=== PATIENT | male | born 1960 | race Caucasian/White ===

== ENCOUNTER → 2017-01-13 | Outpatient (CLI) | payer OTHER ==
[~2017-01-13] MED LIST: BIAXIN500 MG PO; CIPRO250 MG PO; CLARITIN10 MG PO; COMBIVENT1 ARO IH; CORDROL20 MG PO; COREG25 MG PO; CYCLOBENZAPRINE5 M3 PO; DAYPRO600 M1 PO; DUONEB 3 MG/3 ML3 M1 INH; EFFEXOR75 MG PO; FLOVENT0.044 MG/A IH; GLYCERIN SUPPOS1 SUP RC; HYDRALAZINE HCL25 MG PO; HYDROCHLOROTHIA25 M1 PO; KEFLEX500 MG PO; LAMICTAL100 MG PO; LASIX40 MG PO; LEVOFLOXACIN500 MG PO; MOTRIN800 MG PO; NAPROSYN500 MG PO; NORCO 325 MG-7.1 TAB PO; NORCO 5-325 TA1 EACH PO; NORVASC10 MG PO; PRAVACHOL20 MG PO; PREDNICOT20 MG PO; PRILOSEC20 MG PO; REQUIP1 MG PO; ROBAXIN750 MG PO; SPIRIVA18 MCG PO; SYMBICORT1 AE1 INH; VENTOLIN H0.09 MG/AC INH; VICODIN ES 7501 TA1 PO; ZANTAC150 MG PO; ZESTRIL,PRINIVI40 MG PO; ZITHROMAX250 MG PO
[2017-01-13 11:03] LABS: HEMOGLOBIN A1c 5.7 % (4.8-5.6)
[2017-01-13 11:24] LABS: ALBUMIN 3.5 gm/dl (3.1-4.5); POTASSIUM 3.6 mmol/L (3.5-5.1)
[2017-01-13 11:28] LABS: BILIRUBIN, TOTAL 0.2 mg/dl (0.2-1.0); TOTAL PROTEIN 8.1 gm/dL (6.4-8.2)
== END | disposition home or self-care (01) ==
LOC: LAB 10:28
PROVIDERS: Family Medicine
DX: I10 Essential (primary) hypertension (principal); E55.9 Vitamin D deficiency, unspecified; E74.9 Disorder of carbohydrate metabolism, unspecified; E78.00 Pure hypercholesterolemia, unspecified

== ENCOUNTER 2017-02-23 19:51 | Emergency (ER) | payer OTHER ==
[~2017-02-23] VITALS: Ht 167.6 cm; Wt 90.7 kg
[2017-02-23 20:36] LABS: BASO % 0.4 % (0.0-1.0); EOS # 0.4 10*3/uL (0.0-0.4); EOS % 3.8 % (1.0-4.0); HEMATOCRIT 47.5 % (42.0-52.0); HEMOGLOBIN 16.4 g/dl (14.0-18.0); IG # 0.1 10*3/uL (0.0-0.1); LYMPH # 2.2 10*3/uL (1.3-4.4); LYMPH % 23.2 % (27.0-41.0); MEAN CELL VOLUME 89.1 fl (80.0-94.0); MEAN CORPUSCULAR HGB 30.8 pg (27.0-31.0); MEAN CORPUSCULAR HGB CONC 34.5 g/dl (33.0-37.0); MEAN PLATELET VOLUME 8.8 fl (9.6-12.3); MONO # 0.9 10*3/uL (0.1-1.0); MONO % 9.1 % (3.0-9.0); PLATELET COUNT AUTOMATED 345 10*3/uL (130-400); RED BLOOD COUNT 5.33 10*6/uL (4.50-5.90); RED CELL DISTRI WIDTH 13.6 % (0-14.5); WHITE BLOOD COUNT 9.6 10*3/uL (4.8-10.8)
[2017-02-23 20:59] LABS: ALKALINE PHOSPHATASE 82 U/L (45-117); BILIRUBIN, TOTAL 0.4 mg/dl (0.2-1.0); BUN 13 mg/dl (7-24); CARBON DIOXIDE 27 mmol/L (21-32); CHLORIDE 103 mmol/L (98-107); EST GLOM FILT AFRICAN AMERICAN > 60 ml/min; GLUCOSE 95 mg/dL (65-99); POTASSIUM 3.7 mmol/L (3.5-5.1); SGOT/AST 17 IU/L (3-35); SGPT/ALT 26 U/L (12-78); SODIUM 138 mmol/L (136-145); TOTAL PROTEIN 7.8 gm/dL (6.4-8.2)
[2017-02-23 21:00] LABS: TROPONIN I < 0.015 ng/ml (<0.045)
[2017-02-23 22:28] LABS: BILIRUBIN NEGATIVE (NEGATIVE); BLOOD NEGATIVE (NEGATIVE); CLARITY CLEAR (CLEAR); COLOR YELLOW (YELLOW); GLUCOSE NEGATIVE (NEGATIVE); KETONE NEGATIVE (NEGATIVE); LEUKO ESTERASE NEGATIVE (NEGATIVE); NITRITE NEGATIVE (NEGATIVE); PH 6.5 (5.0-9.0); PROTEIN NEGATIVE (NEGATIVE); SPECIFIC GRAVITY <= 1.005 (1.005-1.030); UROBILINOGEN 0.2 E.U./dl (0.2-1.0)
[2017-02-23 22:36] LABS: RBC 0-2 rbc/hpf (0-2); URINE REFLEX COMMENT NO (NO)
[2017-02-23 22:45] VITALS: BP 174/90
[2017-02-23] MEDS ORDERED: NORCO 5-325 TA1 EACH PO (23:07)
[2017-02-23] MEDS ORDERED: CYCLOBENZAPRINE5 M3 PO (23:07)
== END 2017-02-23 23:13 | disposition home or self-care (01) ==
LOC: ED 19:51
PROVIDERS: Emergency Medicine Emergency Medical Services
DX: G89.29 Other chronic pain (principal); M54.5 Low back pain; I10 Essential (primary) hypertension; M51.36 Other intervertebral disc degeneration, lumbar region; F17.200 Nicotine dependence, unspecified, uncomplicated; Z79.899 Other long term (current) drug therapy

== ENCOUNTER → 2017-04-08 | Outpatient (CLI) | payer OTHER ==
[2017-04-08 08:52] LABS: HEMATOCRIT 45.4 % (42.0-52.0); HEMOGLOBIN 15.4 g/dl (14.0-18.0); MEAN CELL VOLUME 92.8 fl (80.0-94.0); MEAN CORPUSCULAR HGB 31.5 pg (27.0-31.0); MEAN CORPUSCULAR HGB CONC 33.9 g/dl (33.0-37.0); MEAN PLATELET VOLUME 8.8 fl (9.6-12.3); RED BLOOD COUNT 4.89 10*6/uL (4.50-5.90); RED CELL DISTRI WIDTH 13.8 % (0-14.5); WHITE BLOOD COUNT 8.8 10*3/uL (4.8-10.8)
[2017-04-08 09:23] LABS: ALBUMIN 3.4 gm/dl (3.1-4.5); ALKALINE PHOSPHATASE 69 U/L (45-117); BILIRUBIN, TOTAL 0.4 mg/dl (0.2-1.0); BUN 14 mg/dl (7-24); CARBON DIOXIDE 31 mmol/L (21-32); CHLORIDE 103 mmol/L (98-107); EST GLOM FILT AFRICAN AMERICAN > 60 ml/min; GLUCOSE 105 mg/dL (65-99); SGOT/AST 20 IU/L (3-35); SGPT/ALT 25 U/L (12-78); SODIUM 142 mmol/L (136-145); TOTAL PROTEIN 7.5 gm/dL (6.4-8.2)
== END | disposition home or self-care (01) ==
LOC: LAB 08:20
PROVIDERS: Family Medicine
DX: N18.3 Chronic kidney disease, stage 3 (moderate) (principal); R60.0 Localized edema

== ENCOUNTER 2017-05-01 18:34 | Emergency (ER) | payer OTHER ==
[~2017-05-01] VITALS: Ht 167.6 cm; Wt 90.7 kg
[2017-05-01 18:52] VITALS: BP 165/115
[2017-05-01] MEDS ORDERED: MEDROL DOSEPAK4 MG PO (20:51)
[2017-05-01] MEDS ORDERED: CYCLOBENZAPRINE5 M3 PO (20:51)
[2017-05-01] MEDS ORDERED: HYDROCODONE BIT1 T11 PO (20:51)
== END 2017-05-01 21:20 | disposition home or self-care (01) ==
LOC: ED 18:34
DX: M54.16 Radiculopathy, lumbar region (principal); F17.200 Nicotine dependence, unspecified, uncomplicated; Z79.82 Long term (current) use of aspirin; Z79.899 Other long term (current) drug therapy

== ENCOUNTER 2017-07-23 16:00 | Inpatient (IN) | payer OTHER ==
[~2017-07-23] VITALS: Ht 167.6 cm; Wt 92.6 kg
[~2017-07-23 16:00] MED LIST changes: +HYDROCODONE BIT1 T11 PO; +MEDROL DOSEPAK4 MG PO; +REQUIP1 M1 PO; -REQUIP1 MG PO
[2017-07-23 16:12] VITALS: BP 230/115
[2017-07-23 16:15] VITALS: BP 180/104
[2017-07-23 16:20] VITALS: BP 160/110
[2017-07-23 16:41] LABS: BASO # 0.1 10*3/uL (0.0-0.1); BASO % 0.6 % (0.0-1.0); EOS # 0.6 10*3/uL (0.0-0.4); EOS % 5.5 % (1.0-4.0); HEMATOCRIT 48.9 % (42.0-52.0); HEMOGLOBIN 16.4 g/dl (14.0-18.0); LYMPH # 2.7 10*3/uL (1.3-4.4); LYMPH % 24.8 % (27.0-41.0); MEAN CELL VOLUME 91.2 fl (80.0-94.0); MEAN CORPUSCULAR HGB 30.6 pg (27.0-31.0); MEAN CORPUSCULAR HGB CONC 33.5 g/dl (33.0-37.0); MEAN PLATELET VOLUME 8.6 fl (9.6-12.3); MONO # 0.8 10*3/uL (0.1-1.0); MONO % 7.6 % (3.0-9.0); NEUT # 6.6 10*3/uL (2.3-7.9); NEUT % 61.2 % (47.0-73.0); PLATELET COUNT AUTOMATED 345 10*3/uL (130-400); RED BLOOD COUNT 5.36 10*6/uL (4.50-5.90); RED CELL DISTRI WIDTH 13.8 % (0-14.5); WHITE BLOOD COUNT 10.7 10*3/uL (4.8-10.8)
[2017-07-23 16:50] LABS: ACT PARTIAL THROMBO TIME 25.5 SECONDS (20.8-31.5); INTERNATIONAL NORM RATIO 0.9 (2.0-3.5)
[2017-07-23 16:58] LABS: ALBUMIN 3.7 gm/dl (3.1-4.5); ALKALINE PHOSPHATASE 90 U/L (45-117); BUN 14 mg/dl (7-24); CHLORIDE 102 mmol/L (98-107); CREATININE 1.34 mg/dL (0.70-1.30); LIPASE 151 U/L (73-393); MAGNESIUM 2.2 mg/dL (1.5-2.1); POTASSIUM 4.3 mmol/L (3.5-5.1); SGOT/AST 17 IU/L (3-35); SGPT/ALT 19 U/L (12-78); SODIUM 139 mmol/L (136-145)
[2017-07-23 17:01] LABS: TROPONIN I < 0.015 ng/ml (<0.045)
[2017-07-23 18:30] VITALS: BP 148/100
[2017-07-23 18:37] LABS: BILIRUBIN NEGATIVE (NEGATIVE); BLOOD NEGATIVE (NEGATIVE); CLARITY CLEAR (CLEAR); COLOR YELLOW (YELLOW); GLUCOSE NEGATIVE (NEGATIVE); KETONE NEGATIVE (NEGATIVE); LEUKO ESTERASE NEGATIVE (NEGATIVE); NITRITE NEGATIVE (NEGATIVE); PH 5.5 (5.0-9.0); UROBILINOGEN 0.2 E.U./dl (0.2-1.0)
[2017-07-23 18:46] LABS: BACTERIA TRACE; EPITHELIAL CELLS 0-2; RBC 0-2 rbc/hpf (0-2); WBC 0-2 wbc/hpf (0-5)
[2017-07-23 19:40] VITALS: BP 205/107
--- NOTE | 2017-07-23 19:42 | NUR ---
ATTEMPTED TO CALL REPORT AT THIS TIME.
--- NOTE | 2017-07-23 20:00 | NUR ---
PHYSCIAN INFORMED OF ELEVATED BLOOD PRESSURE READING.
[2017-07-23 21:00] VITALS: BP 205/107
--- NOTE | 2017-07-23 21:00 | NUR ---
A 57, admitted to 5E, under the services of JEANNE Navarro MD with a diagnosis of COPD EXACERBATION, HYPERTENSIVE EMERGENCY. Chief complaint is SHORTNESS OF BREATH. Patient arrived via bed from ER. Monitor applied. Initial assessment completed. Vital signs taken and recorded. JEANNE NAVARRO MD notified of admission to the unit. Orders received. See assessment for past medical history, medications and allergies. Patient and/or family oriented to unit. visitation policy reviewed. Clothing/patient valuable form completed. ELLIOT PETERSON
--- NOTE | 2017-07-23 22:00 | NUR ---
HOME MEDICATIONS VERIFIED WITH PATIENT. DR. HARVEY NOTIFIED OF PATIENT ADMISSION TO FLOOR. NEW ORDERS RECEIVED. DR. HARVEY WILL RESUME HOME MEDICATIONS IN THE MORNING. CALL LIGHT IN REACH
[2017-07-23] MEDS ORDERED: COREG3.125 MG PO (22:10)
[2017-07-24] VITALS: BP 186/82
--- NOTE | 2017-07-24 02:26 | NUR ---
PATIENT MEDICATED WITH NORCO AT 2243 FOR COMPLAINTS OF SHOULDER PAIN WITH EFFECTIVE RESULTS NOTED. RESTING IN BED WITH EYES OPEN AT THIS TIME. DENIES COMPLAINTS OF PAIN OR DISCOMFORT. WILL CONTINUE TO MONITOR. CALL LIGHT IN REACH.
[2017-07-24 08:00] VITALS: BP 180/100
--- NOTE | 2017-07-24 08:37 | NUR ---
PT COMPLAINS OF PAIN IN BACK AND SHOULDER 06/04. NORCO GIVEN.SEE DEC. WILL MONITOR FOR EFFECTIVENESS
[2017-07-24] MEDS ORDERED: EFFEXOR XR75 M1 PO (08:44)
--- NOTE | 2017-07-24 10:15 | NUR ---
PT STATES NORCO EFFECTIVE FOR PAIN. NO NEEDS AT THIS TIME
--- NOTE | 2017-07-24 10:40 | NUR ---
REE HADDADORE TO FAX PATIENTS HOME MEDICATION LIST FOR VARIFICATION
[2017-07-24] MEDS ORDERED: VENLAFAXINE37.5 M1 PO (11:36)
[2017-07-24] MEDS ORDERED: NORCO 5-325 TA1 EACH PO (11:46)
[2017-07-24] MEDS ORDERED: IBU800 M1 PO (11:49)
[2017-07-24] MEDS ORDERED: ROPINIROLE HYDRO1 MG PO (11:51)
--- NOTE | 2017-07-24 12:04 | NUR ---
PT REQUEST TO SIGN OUT AMA. DISCUSS RISKS WITH PATIENT. HE STATES HE HAS AN EMERGENCY AT HOME AND HAS TO LEAVE. IV REMOVED AND DRESSING APPLIED, TELE MONITOR REMOVED.
== END 2017-07-24 12:04 | disposition left against medical advice (07) | DRG 191 ==
LOC: ED 16:00 → 5E 17:26 → EDHOLD 17:26 → 5E 18:53
PROVIDERS: Emergency Medicine; Student in an Organized Health Care Education/Training Program; ADMIT Internal Medicine
DX: J44.1 Chronic obstructive pulmonary disease with (acute) exacerbation (principal); I16.1 Hypertensive emergency; I10 Essential (primary) hypertension; G89.29 Other chronic pain; M54.5 Low back pain; M51.16 Intervertebral disc disorders with radiculopathy, lumbar region

== ENCOUNTER → 2017-10-21 | Outpatient (CLI) | payer OTHER ==
[~2017-10-21] MED LIST changes: +COREG3.125 MG PO; +EFFEXOR XR75 M1 PO; +IBU800 M1 PO; +ROPINIROLE HYDRO1 MG PO; +VENLAFAXINE37.5 M1 PO
== END | disposition home or self-care (01) ==
LOC: CARD 09-29 14:00
DX: R06.09 Other forms of dyspnea (principal)

== ENCOUNTER 2017-11-11 12:31 | Emergency (ER) | payer OTHER ==
[~2017-11-11] VITALS: Ht 167.6 cm; Wt 95.3 kg
[2017-11-11 15:11] VITALS: BP 158/91
[2017-11-11] MEDS ORDERED: MEDROL DOSEPAK4 MG PO (15:37)
[2017-11-11] MEDS ORDERED: CYCLOBENZAPRINE5 M3 PO (15:37)
[2017-11-11] MEDS ORDERED: ULTRAM50 MG PO (15:37)
== END 2017-11-11 15:42 | disposition home or self-care (01) ==
LOC: ED 12:31
DX: M54.5 Low back pain (principal); G89.29 Other chronic pain; F17.200 Nicotine dependence, unspecified, uncomplicated; Z79.899 Other long term (current) drug therapy

== ENCOUNTER 2018-01-04 18:02 | Emergency (ER) | payer OTHER ==
[~2018-01-04] VITALS: Ht 167.6 cm; Wt 90.7 kg
[~2018-01-04 18:02] MED LIST changes: +ULTRAM50 MG PO
[2018-01-04 18:48] LABS: BASO % 0.4 % (0.0-1.0); EOS # 0.4 10*3/uL (0.0-0.4); EOS % 4.4 % (1.0-4.0); LYMPH # 1.9 10*3/uL (1.3-4.4); LYMPH % 19.4 % (27.0-41.0); MEAN CELL VOLUME 90.4 fl (80.0-94.0); MEAN CORPUSCULAR HGB 30.7 pg (27.0-31.0); MEAN PLATELET VOLUME 8.9 fl (9.6-12.3); MONO # 0.5 10*3/uL (0.1-1.0); MONO % 5.2 % (3.0-9.0); NEUT # 6.8 10*3/uL (2.3-7.9); NEUT % 70.1 % (47.0-73.0); PLATELET COUNT AUTOMATED 308 10*3/uL (130-400); RED BLOOD COUNT 5.53 10*6/uL (4.50-5.90); RED CELL DISTRI WIDTH 13.6 % (0-14.5); WHITE BLOOD COUNT 9.7 10*3/uL (4.8-10.8)
[2018-01-04 19:04] LABS: ALBUMIN 3.5 gm/dl (3.1-4.5); ALKALINE PHOSPHATASE 77 U/L (45-117); BUN 9 mg/dl (7-24); CHLORIDE 98 mmol/L (98-107); CREATININE 1.38 mg/dL (0.70-1.30); POTASSIUM 3.2 mmol/L (3.5-5.1); SGOT/AST 22 IU/L (3-35); SGPT/ALT 28 U/L (12-78); SODIUM 137 mmol/L (136-145); TOTAL PROTEIN 7.6 gm/dL (6.4-8.2)
[2018-01-04 19:06] LABS: TROPONIN I < 0.015 ng/ml (<0.045)
[2018-01-04] MEDS ORDERED: PROAIR HFA8.5 GM INH (20:51)
[2018-01-04] MEDS ORDERED: MEDROL DOSEPAK4 MG PO (20:51)
[2018-01-04] MEDS ORDERED: DUONEB 3 MG/3 ML3 M1 INH (20:51)
[2018-01-04 20:52] VITALS: BP 160/98
== END 2018-01-04 21:04 | disposition home or self-care (01) ==
LOC: ED 18:02
PROVIDERS: Physician Assistant
DX: J44.1 Chronic obstructive pulmonary disease with (acute) exacerbation (principal); I10 Essential (primary) hypertension; M79.89 Other specified soft tissue disorders; Z98.890 Other specified postprocedural states; Z79.899 Other long term (current) drug therapy

== ENCOUNTER → 2018-08-23 | Outpatient (CLI) | payer OTHER ==
[~2018-08-23] MED LIST changes: +PROAIR HFA8.5 GM INH
[2018-08-23 09:34] LABS: HEMATOCRIT 53.7 % (42.0-52.0); HEMOGLOBIN 17.6 g/dl (14.0-18.0); MEAN CELL VOLUME 92.6 fl (80.0-94.0); MEAN CORPUSCULAR HGB 30.3 pg (27.0-31.0); MEAN CORPUSCULAR HGB CONC 32.8 g/dl (33.0-37.0); MEAN PLATELET VOLUME 8.9 fl (9.6-12.3); RED BLOOD COUNT 5.8 10*6/uL (4.50-5.90); RED CELL DISTRI WIDTH 14.6 % (0-14.5); WHITE BLOOD COUNT 9.3 10*3/uL (4.8-10.8)
[2018-08-23 09:57] LABS: ALBUMIN 3.5 gm/dl (3.1-4.5); BUN 11 mg/dl (7-24); CHLORIDE 107 mmol/L (98-107); POTASSIUM 4.6 mmol/L (3.5-5.1); SODIUM 142 mmol/L (136-145)
[2018-08-23 10:02] LABS: ALKALINE PHOSPHATASE 80 U/L (45-117); CHOLESTEROL 173 mg/dL (<200); CREATININE 1.37 mg/dL (0.70-1.30); HDL CHOLESTEROL 35 mg/dl (40-60); LDL CHOLESTEROL 106 mg/dL (9-159); SGOT/AST 14 IU/L (3-35); SGPT/ALT 17 U/L (12-78); TOTAL PROTEIN 7.3 gm/dL (6.4-8.2); TRIGLYCERIDES 158 mg/dl (<150); VLDL CHOLESTEROL 32 mg/dL (6-40)
== END | disposition home or self-care (01) ==
LOC: LAB 08:43
PROVIDERS: Family Medicine
DX: I10 Essential (primary) hypertension (principal); E11.9 Type 2 diabetes mellitus without complications; E78.00 Pure hypercholesterolemia, unspecified; M19.90 Unspecified osteoarthritis, unspecified site; M54.9 Dorsalgia, unspecified

== ENCOUNTER → 2018-12-22 | Outpatient (CLI) | payer OTHER ==
[~2018-12-22] MED LIST changes: +CARVEDILOL6.25 MG PO; +CEFUROXIME AXE250 MG PO; +FUROSEMIDE40 MG PO; +GABAPENTIN800 MG PO; +HYDRALAZINE HYD50 MG PO; +Ipratropium Brom3 ML NEB; +POTASSIUM CHLO20 ME4 PO; +PREDNISONE5 MG PO; +VITAMIN D50000 UNIT PO
[2018-12-22 13:51] LABS: THYROID STIM HORMONE (HS) 3.71 uIU/ml (0.358-4.75); URIC ACID 6.9 mg/dL (3.5-7.2)
== END | disposition home or self-care (01) ==
LOC: LAB 12:06
PROVIDERS: Family Medicine
DX: F03.90 Unspecified dementia, unspecified severity, without behavioral disturbance, psychotic disturbance, mood disturbance, and anxiety (principal); M10.9 Gout, unspecified

== ENCOUNTER 2019-02-04 18:17 | Inpatient (IN) | payer OTHER ==
[~2019-02-04] VITALS: Ht 167.6 cm; Wt 91.7 kg
--- NOTE | ~2019-02-04 | ST ---
[place], [place] EXERCISE STRESS TEST REPORT NAME: SHAE RODRIGUEZ [facility] [id number] UNIT #: [id number] ROOM: 404 DOCTOR: TARYN MARTINES [facility] BIRTHDATE: 56 DOS: 02/06/2019 LEXISCAN WITH SESTAMIBI The patient received Lexiscan 0.4 mg over 10 seconds. Heart rate is 65. No conclusive electrocardiographic changes noted. Ventricular ectopy and atrial ectopy is noted and no complication noted. Isotope was injected. Myocardial perfusion scan to follow. SONNY CENTENO MD CM:STRESS:EXERCISE STRESS TEST REPORT 0730 SONNY CENTENO MD [facility]
--- NOTE | ~2019-02-04 | CON ---
[place], [place] REPORT OF CONSULTATION NAME: SHAE RODRIGUEZ UNIT #: [id number] ROOM: 404 DOCTOR: SONNY CENTENO MD, FACC BIRTHDATE: [birth year] DOS: 02/06/2019 CARDIOLOGY CONSULTATION HISTORY OF PRESENT ILLNESS: The patient is a 58-year-old, came with history of progressive increasing chest discomfort and also severely hypertensive and blood pressure gradually improving with optimal medications. Recurrent chest discomfort and a history of hypertension, history of smoking 2 packs a day and no recent workup for cardiovascular disease including no recent stress test. REVIEW OF SYSTEMS: HEENT: Unremarkable. CARDIOPULMONARY: As described. GENITOURINARY: Unremarkable. GENITALIA: Unremarkable. NEUROLOGICAL: No stroke. PHYSICAL EXAMINATION: VITAL SIGNS: Blood pressure is initially was much higher and more than 200 systolic and more than 100 diastolic. LUNGS: Diminished breath sounds at bases, bibasilar rhonchi. HEART: S1, S2 regular, ventricle gallop. ABDOMEN: Soft. Color is good. Moderately obese. Color is good, not diaphoretic. EXTREMITIES: No cyanosis. Initial enzymes minimally increased, but not critical, hence contemplating the Lexiscan with Cardiolite to evaluate for ischemic heart disease. RECTAL AND GENITAL: Deferred unrelated. DIAGNOSES: Crescendo angina, underlying coronary artery disease considered. History of smoking. PLAN: Coronary artery disease, plan Lexiscan with Cardiolite to evaluate for ischemic heart disease. I will review the echocardiogram. The patient is on clonidine, hydralazine, carvedilol, lisinopril, Prilosec, potassium supplements, simvastatin, albuterol treatment and put him on baby aspirin daily. We will continue the current management. Thank you very much for asking me to see the patient. I will follow the patient with you. [place], [place] REPORT OF CONSULTATION NAME: FRANCIS RODRIGUEZCRISTINA Melendrez UNIT #: [id number] ROOM: 404 DOCTOR: SONNY CENTENO MD, FACC BIRTHDATE: [birth year] SONNY CENTENO MD CM:CONSTR:REPORT OF CONSULTATION 1546 02/17/19 2019 interface
--- NOTE | ~2019-02-04 | WRIGHTHP ---
[place], [place] PATIENT HISTORY AND PHYSICAL EXAM NAME: SHAE RODRIGUEZ [facility] #: [id number] UNIT #: [id number] ROOM: 404 DOCTOR: JEANNE HARVEY MD BIRTHDATE: [birth year] DOS: 02/04/2019 HISTORY OF PRESENT ILLNESS: This patient is 58 years old. The patient is known to me from a previous admission, comes in with complaints of shortness of breath and cough. The patient states that he smokes about 2 packs of cigarettes a day, has had a cough and shortness of breath for the last few days. He also had some pain when he coughed, but did not have any retrosternal chest pain, any radiation of pain. He denies having any fever, chills, any abdominal pain, nausea, and emesis. PAST MEDICAL HISTORY: Significant for: 1. Chronic back pain. 2. Benign hypertension. 3. COPD. 4. Moderate cigarette smoker. 5. Major depression. MEDICATIONS: He is currently on are Ventolin p.r.n., ProAir p.r.n., Symbicort 160 one puff twice a day, breathing treatments every 6 hours p.r.n., carvedilol 3.125 b.i.d., Lasix 40 daily, gabapentin 800 every 8 hours, hydralazine 50 q.i.d., [place] 5 twice a day, ibuprofen 800 twice a day, lisinopril 40 daily, omeprazole 40 daily, potassium 20 daily, Pravachol 10 daily, Requip 2 mg at bedtime. SOCIAL HISTORY: Smokes about 2 packs of cigarettes a day, states that he is not drinking any alcohol. PHYSICAL EXAMINATION: GENERAL: He is awake and alert and oriented, in no major distress. VITAL SIGNS: Graphic trend shows a blood pressure of 132/70, pulse of 86, respirations 14, afebrile. LUNGS: Diminished breath sounds. No wheezes, rales or rhonchi heard this morning. HEART: Regular. ABDOMEN: Obese, soft, nontender. EXTREMITIES: Without any edema. ASSESSMENT AND PLAN: 1. The patient who presents with shortness of breath. CT of the chest was negative. He has underlying chronic obstructive pulmonary disease with some mild exacerbation. He was placed on medications. 2. Admission with complaints of chest pain. This morning, the patient states he never had any retrosternal chest pain. The pain was mostly when he coughs. This is an atypical chest pain. Cardiology consultation was obtained. Await for them to decide if any further testing needs to be done. Otherwise, he should be able to go home in the next 24 hours. 3. Moderate cigarette smoker, counseling given. The patient did not want any medications to stop smoking, but he did request Nicotrol patch while he is here, so that has been prescribed. 4. Benign hypertension, controlled. [place], [place] PATIENT HISTORY AND PHYSICAL EXAM NAME: SHAE RODRIGUEZ UNIT #: [id number] ROOM: [facility] DOCTOR: JEANNE HARVEY MD BIRTHDATE: [birth year] 5. Chronic low back pain. Already on [place] from home, which is being continued here. JEANNE HARVEY MD CM:HISPHYS:PATIENT HISTORY AND PHYSICAL EXAMINATION 9 [id number] JEANNE HARVEY MD 02/05/19 0835 interface
--- NOTE | ~2019-02-04 | EKG ---
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
--- NOTE | ~2019-02-04 | EKG ---
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
--- NOTE | ~2019-02-04 | PR ---
[place], [place] PROGRESS NOTE NAME: SHAE RODRIGUEZ [facility] #: [id number] UNIT #: [id number] ROOM: 404 DOCTOR: JEANNE HARVEY MD BIRTHDATE: [birth year] DOS: SUBJECTIVE: The patient is resting comfortably. He underwent the stress test this morning. He does not have any complaints of chest pains or palpitations. PHYSICAL EXAMINATION: GENERAL: He is awake and alert and oriented. VITAL SIGNS: Blood pressure is 168/90, pulse of 57, respirations 20, temperature 97.5. LUNGS: Diminished breath sounds, a few scattered wheezes. HEART: Regular. ABDOMEN: Obese. EXTREMITIES: Without any edema. ASSESSMENT AND PLAN: 1. Precordial chest pain, status post stress test. We are waiting for the Cardiolite images. If they look good, the patient should be able to go home today. 2. Benign hypertension, uncontrolled, adjustments in medications were made. 3. Acute kidney injury from hypertensive nephrosclerosis. Avoid nephrotoxic medications. 4. Chronic obstructive pulmonary disease, assess for home O2 and breathing treatments have been ordered for home. JEANNE HARVEY MD CM:PNTRANS 0835 31 JEANNE HARVEY MD 02/07/192229 interface
--- NOTE | ~2019-02-04 | PR ---
[place], [place] PROGRESS NOTE NAME: SHAE RODRIGUEZ [facility] #: [id number] UNIT #: [id number] ROOM: 404 DOCTOR: JEANNE HARVEY MD BIRTHDATE: [birth year] DOS: 02/06/2019 SUBJECTIVE: The patient is doing better. His blood pressure finally have come down, systolic was in the 200s during the day. He does not have any more chest pains or cough and shortness of breath also subsided. OBJECTIVE: VITAL SIGNS: Pressure is 120/70 this morning, pulse of 62, respirations 18, temperature 97.8. LUNGS: Clear. HEART: Regular. ABDOMEN: Obese, soft, nontender. EXTREMITIES: Without any edema. ASSESSMENT AND PLAN: 1. Hypertension, uncontrolled, much better after adjustments in medications made. 2. Chest pain, ruled out for myocardial infarction. Awaiting stress test with Dr. Costa tomorrow. 3. Chronic obstructive pulmonary disease with mild exacerbation. We will taper the steroids off. JEANNE HARVEY MD CM:PNTRANS 2 51 EJANNE HARVEY MD 02/06/192050 interface
--- NOTE | ~2019-02-04 | DS ---
[place], [place] DISCHARGE SUMMARY NAME: SHAE RODRIGUEZ [facility] #: [id number] UNIT #: [id number] ROOM: 404 DOCTOR: JEANNE HARVEY MD BIRTHDATE: [birth year] DOS: 02/07/2019 DIAGNOSES: 1. Precordial chest pain, status post stress test. Echocardiogram is not available. 2. Chronic obstructive pulmonary disease with acute exacerbation. 3. Chronic respiratory failure. 4. Benign hypertension, poorly controlled. HOSPITAL COURSE: This patient is 58 years old. The patient comes in with complaints of chest pains and cough. The pain was mostly when he coughed and evaluation in the Emergency Room, lactic acid was normal, rapid flu was negative, chest x-ray did not show any pneumonic infiltrate or CHF, and trace pleural effusions were noted. A CTA of the chest was done, which showed no evidence of PE, emphysema was noted. Multiple lung nodules were also seen. This needs to be continued to be followed as an outpatient. It is benign appearing nodules right now. Blood cultures came back negative. Dr. Costa did take him for a stress test. We do not have the results of the stress or the echo right now. His labs show white cell count of 9.5, hemoglobin 14.5, hematocrit 45.5, and glucose 100, BUN 24, creatinine 1.50. The patient has improved, has some minimal bronchospasm. He will be placed on breathing treatments when he goes home. Assessment of home O2 will be ordered upon discharge and if he does qualify, he will need to use oxygen during daylight hours also. Right now, he is only using it at night. DISCHARGE MEDICATIONS: Will include hydralazine 100 mg q. 8 hours., Coreg 6.25 b.i.d., breathing treatments with DuoNeb q. 4 hours, oxygen 2 liters. Ceftin 250 twice daily, tapering dose of prednisone, lisinopril 40 daily, omeprazole 40 daily, Pravachol 10 daily. Symbicort 160 one puff twice a day, Ventolin 2 puffs twice a day p.r.n., Joffre 5 b.i.d. p.r.n., Requip 2 mg at bedtime, albuterol ProAir HFA q.i.d. p.r.n., vitamin D 50,000 units daily, potassium 20 daily, Lasix 40 daily, gabapentin 800 every 8 hours. Avoid nonsteroidals because of chronic kidney disease stage 3. Also, counselled against smoking. [place], [place] DISCHARGE SUMMARY NAME: SHAE RODRIGUEZ UNIT #: [id number] ROOM: [facility] DOCTOR: JEANNE HARVEY MD BIRTHDATE: [birth year] JEANNE HARVEY MD CM:DISCHARG [id number] JEANNE HARVEY MD 02/07/19 1027 interface
--- NOTE | ~2019-02-04 | PR ---
[place], [place] PROGRESS NOTE NAME: SHAE RODRIGUEZ [facility] #: [id number] UNIT #: [id number] ROOM: 404 DOCTOR: JEANNE HARVEY MD BIRTHDATE: [birth year] DOS: SUBJECTIVE: The patient is still here, did not go home yesterday because no stress report was available. He feels good and is not having any complaints. OBJECTIVE: VITAL SIGNS: Blood pressure is 150/94, pulse of 51, respirations 18, temperature 98.2. LUNGS: Diminished breath sounds, clear. HEART: Regular. ABDOMEN: Obese, soft, nontender. EXTREMITIES: Without any edema. ASSESSMENT AND PLAN: 1. Chronic obstructive pulmonary disease exacerbation, improved and stable. 2. Chest pain, status post stress testing, echocardiogram was also completed. No reports available. The patient is relatively stable, can be discharged today. JEANNE HARVEY MD CM:PNTRANS 0840 1012 JEANNE HARVEY MD 02/08/19 1011 interface
--- NOTE | ~2019-02-04 | EKG ---
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 : 1960 Requested By: NUNO GRANADOS Order Number: [id number] Reading MD: Elvira Torres MD Measurements Intervals [place] Rate: 71 P: -62 [place]: 151 QRS: -31 QRSD: 86 T: QT: 408 QTc: 444 Interpretive Statements Ectopic atrial rhythm Paired ventricular premature complexes Abnormal R-wave progression, early transition Left ventricular hypertrophy Anterior Q waves, possibly due to LVH Borderline T abnormalities, inferior leads Borderline ST elevation, lateral leads Electronically Signed On 02-07-2019 10:04:30 PDT by Elvira Torres MD CM:EKGRPT:ELECTROCARDIOGRAM REPORT 0005 1004 NUNO DEL CASTILLO DRAFT REPORT NUNO GRANADOS MD
[2019-02-04 18:17] VITALS: BP 179/93
[~2019-02-04 18:17] MED LIST changes: -CARVEDILOL6.25 MG PO; -CEFUROXIME AXE250 MG PO; -FUROSEMIDE40 MG PO; -GABAPENTIN800 MG PO; -HYDRALAZINE HYD50 MG PO; -Ipratropium Brom3 ML NEB; -POTASSIUM CHLO20 ME4 PO; -PREDNISONE5 MG PO; -VITAMIN D50000 UNIT PO
[2019-02-04 18:36] LABS: BASO # 0.1 10*3/uL (0.0-0.1); BASO % 0.4 % (0.0-1.0); EOS # 0.2 10*3/uL (0.0-0.4); EOS % 1.7 % (1.0-4.0); HEMATOCRIT 52.3 % (42.0-52.0); HEMOGLOBIN 17.8 g/dl (14.0-18.0); LYMPH # 1.9 10*3/uL (1.3-4.4); LYMPH % 16.9 % (27.0-41.0); MEAN CELL VOLUME 91.4 fl (80.0-94.0); MEAN CORPUSCULAR HGB 31.1 pg (27.0-31.0); MEAN PLATELET VOLUME 9.2 fl (9.6-12.3); MONO % 8.4 % (3.0-9.0); NEUT # 8.1 10*3/uL (2.3-7.9); NEUT % 72.2 % (47.0-73.0); PLATELET COUNT AUTOMATED 330 10*3/uL (130-400); RED BLOOD COUNT 5.72 10*6/uL (4.50-5.90); RED CELL DISTRI WIDTH 13.4 % (0-14.5); WHITE BLOOD COUNT 11.3 10*3/uL (4.8-10.8)
[2019-02-04 18:53] LABS: ALBUMIN 3.5 gm/dl (3.1-4.5); CREATININE 1.66 mg/dL (0.70-1.30); POTASSIUM 3.4 mmol/L (3.5-5.1); TOTAL PROTEIN 7.8 gm/dL (6.4-8.2)
[2019-02-04 18:54] LABS: TROPONIN I 0.021 ng/ml (<0.045)
[2019-02-04 18:55] LABS: ACT PARTIAL THROMBO TIME 24.1 SECONDS (20.8-31.5); INTERNATIONAL NORM RATIO 0.9 (2.0-3.5)
[2019-02-04] MEDS ORDERED: VITAMIN D50000 UNIT PO (23:09)
[2019-02-04] MEDS ORDERED: POTASSIUM CHLO20 ME4 PO (23:09)
[2019-02-04] MEDS ORDERED: FUROSEMIDE40 MG PO (23:09)
[2019-02-04] MEDS ORDERED: GABAPENTIN800 MG PO (23:09)
[2019-02-05 00:30] VITALS: BP 171/93
--- NOTE | 2019-02-05 00:30 | NUR ---
A 58, admitted to , under the services of JEANNE Navarro MD with a diagnosis of EXACERBATION COPD, CHEST PAIN. Chief complaint is SOB AND CHEST PAIN. Patient arrived via stretcher from ER. Monitor applied. Initial assessment completed. Vital signs taken and recorded. JEANNE NAVARRO MD notified of admission to the unit. Orders received. See assessment for past medical history, medications and allergies. Patient and/or family oriented to unit. [facility] visitation policy reviewed. Clothing/patient valuable form completed. CHIP BOLAND
--- NOTE | 2019-02-05 01:57 | NUR ---
MESSAGE LEFT ON DR CENTENO CELL PHONE.
--- NOTE | 2019-02-05 03:05 | NUR ---
MEDICATAED WITH NORCO PER PRN ORDER FOR C/O BACK PAIN.
--- NOTE | 2019-02-05 06:34 | NUR ---
DR CENTENO NOTIFIED OF CONSULT. NO NEW ORDERS.
[2019-02-05 08:00] VITALS: BP 156/84
[2019-02-05 12:00] VITALS: BP 178/86
--- NOTE | 2019-02-05 15:28 | NUR ---
NOTIFIED DR HARVEY OF PT SBP TODAY AND ORDERS RECIEVED.
[2019-02-05 16:00] VITALS: BP 196/84
--- NOTE | 2019-02-05 17:02 | NUR ---
NOTIFIED DR HARVEY OF PT BP 196/84.[facility]. DENIES H/A. DENIES DIZZINESS. ORDERS RECIEVED.
[2019-02-05 20:00] VITALS: BP 190/90
[2019-02-05 21:43] VITALS: BP 158/80
[2019-02-06] VITALS: BP 138/70
[2019-02-06 04:00] VITALS: BP 120/70
--- NOTE | 2019-02-06 07:54 | NUR ---
DR CENTENO AWAREONSULT AND ORDERS RECIEVED.
[2019-02-06 08:00] VITALS: BP 118/78
--- NOTE | 2019-02-06 10:10 | NUR ---
NOTIFIED DR MONTERO OF NEW CONSULT FOR ACUTE ON CHRONIC DIASTOLIC FAILURE.
[2019-02-06 12:00] VITALS: BP 132/74
--- NOTE | 2019-02-06 15:32 | NUR ---
DR CENTENO ROUNDED AND SEEN PT.
[2019-02-06 16:00] VITALS: BP 162/83
--- NOTE | 2019-02-06 17:22 | NUR ---
TYLENOL 650 MG GIVEN FOR C/O BACK PAIN,05/04.
[2019-02-06 20:00] VITALS: BP 168/84
[2019-02-07] VITALS: BP 148/80
[2019-02-07 06:12] LABS: BASO % 0.4 % (0.0-1.0); EOS # 0.3 10*3/uL (0.0-0.4); EOS % 3.2 % (1.0-4.0); HEMATOCRIT 44.5 % (42.0-52.0); HEMOGLOBIN 14.5 g/dl (14.0-18.0); LYMPH # 2.2 10*3/uL (1.3-4.4); LYMPH % 23.2 % (27.0-41.0); MEAN CELL VOLUME 95.7 fl (80.0-94.0); MEAN CORPUSCULAR HGB 31.2 pg (27.0-31.0); MEAN CORPUSCULAR HGB CONC 32.6 g/dl (33.0-37.0); MEAN PLATELET VOLUME 9.7 fl (9.6-12.3); MONO # 0.9 10*3/uL (0.1-1.0); NEUT # 6.1 10*3/uL (2.3-7.9); NEUT % 63.8 % (47.0-73.0); PLATELET COUNT AUTOMATED 273 10*3/uL (130-400); RED BLOOD COUNT 4.65 10*6/uL (4.50-5.90); RED CELL DISTRI WIDTH 13.8 % (0-14.5); WHITE BLOOD COUNT 9.5 10*3/uL (4.8-10.8)
--- NOTE | 2019-02-07 06:25 | NUR ---
PT TAKEN TO CARDIAC REHAB FOR STRESS TEST.
[2019-02-07 06:34] LABS: CREATININE 1.5 mg/dL (0.70-1.30); POTASSIUM 3.7 mmol/L (3.5-5.1)
--- NOTE | 2019-02-07 07:05 | NUR ---
INFORMED CONSENT SIGNED FOR LEXISCAN STRESS TEST WITH DR. CENTENO. RESTING EKG SINUS BRADYCARDIA WITH PACS SINGLES AND COUPLETS, AND PVC'S. HEART RATE 56, BP 132/80. COMPLETED ONE MINUTE OF LEXISCAN PROTOCOL RECEIVING LEXISCAN 0.4MG OVER 10 SECONDS. PAC'S IN COUPLETES AND TRIPLETS NOTED WITH PVC'S. NO ST CHANGES NOTED. LAST RECOVERY HR 58, BP 136/78. WAITING NUCLEAR SCANNING IN STABLE CONDITION.
[2019-02-07] MEDS ORDERED: HYDRALAZINE HYD50 MG PO (07:23)
[2019-02-07] MEDS ORDERED: CARVEDILOL6.25 MG PO (07:23)
[2019-02-07 08:00] VITALS: BP 168/90
[2019-02-07] MEDS ORDERED: Ipratropium Brom3 ML NEB (08:32)
[2019-02-07] MEDS ORDERED: CEFUROXIME AXE250 MG PO (08:32)
[2019-02-07] MEDS ORDERED: PREDNISONE5 MG PO (08:32)
--- NOTE | 2019-02-07 09:00 | NUR ---
Passenger Car Cleaning Supervisor in to talk to patient. Patient states lives at home with his . There are 0 steps in the home. Physician: Dr. Evan Mckinnon [facility]: [facility] Home health services: none Patient's level of ADLs: MINIMAL ASSIST Patient has working utilities: yes DME: cane, walker occasionally, O2 @ 2L nc at HS, O2 supplier [employer] Follow-up physician's appointment after d/c: he prefers to make his own follow up appt after discharge Does patient want to access PORTAL?: no Discharge plan discussed with patient. He lives at home with his . He is independent in his ADLs and ambulates with a cane. Discussed home health care services and he denies any home needs at this time. When medically stable he will be discharged to home. LUDWIG MAXWELL
--- NOTE | 2019-02-07 09:17 | NUR ---
patient tested for use of home oxygen.patient was found on room air with a sturation of 97%. hearet rate 52bpm, respiratory rate 16, blood pressure of 168/90 per the instructional coordinator. during the walk the patient didnt complain of shortness of breathe, and showed no signs. he only complained of weakness, most likely from lack of exercise recently. during ambulation spo2 never dropped below 95-96% heart rate 72bpm. patient does not need oxygen during the day, but still carries an order for use of over night oxygen.
--- NOTE | 2019-02-07 10:29 | NUR ---
Faxed nebulizer prescription to [facility].
[2019-02-07 12:00] VITALS: BP 180/80
[2019-02-07 13:34] VITALS: BP 156/100
[2019-02-07 16:00] VITALS: BP 166/70
[2019-02-07 20:00] VITALS: BP 157/93
--- NOTE | 2019-02-07 21:25 | NUR ---
COREG HELD D/T HR IN THE MID TO HIGH 50S.
--- NOTE | 2019-02-07 21:45 | NUR ---
ASSESSMENT COMPLETED. SEE ASSESSMENT INTERVENTION. RESPIRATIONS EASY NONLABOURED. NO SIGNS OR SYMPTOMS OF DISTRESS. VOICES NO CONCERNS AT THIS TIME.
[2019-02-08] VITALS: BP 168/102
[2019-02-08 00:30] VITALS: BP 152/98
--- NOTE | 2019-02-08 03:46 | NUR ---
LYING IN BED EYES CLOSED. NO SIGNS OR SYMPTOMS OF DISTRESS. RESPIRATIONS EASY NONLABOURED.
[2019-02-08 08:00] VITALS: BP 150/94
--- NOTE | 2019-02-08 08:00 | NUR ---
Supervisor Soakers in to see patient. No new needs or request at this time. He denies any home needs. When medically stable he will be discharged to home.
[2019-02-08 12:00] VITALS: BP 169/97
--- NOTE | 2019-02-08 12:30 | NUR ---
Discharge instructions reviewed with patient/family. Patient receptive and verbalizes understanding. Follow-up care arranged. Written instructions given to patient/family. HEPLOCK DISCONTINUED. MONITOR REMOVED. PATIENT AMBULATORY OFF FLOOR. APPOINTMENT SET UP FOR 'S OFFICE. HENRRY PORTER
== END 2019-02-08 12:30 | disposition home or self-care (01) | DRG 191 ==
LOC: ED 18:17 → 4E 23:27 → EDHOLD 23:27 → 4E 23:52
PROVIDERS: Emergency Medicine; ADMIT Internal Medicine
PROC: 4A02XM4 Measurement of Cardiac Total Activity, External Approach (ICD-10-PCS; principal; 2019-02-06)
PROC: 3E073KZ Introduction of Other Diagnostic Substance into Coronary Artery, Percutaneous Approach (ICD-10-PCS; 2019-02-06)
DX: J44.1 Chronic obstructive pulmonary disease with (acute) exacerbation (principal); N17.9 Acute kidney failure, unspecified; J96.10 Chronic respiratory failure, unspecified whether with hypoxia or hypercapnia; R07.2 Precordial pain; I25.118 Atherosclerotic heart disease of native coronary artery with other forms of angina pectoris; F17.210 Nicotine dependence, cigarettes, uncomplicated; F32.9 Major depressive disorder, single episode, unspecified; G89.29 Other chronic pain; M54.9 Dorsalgia, unspecified; I12.9 Hypertensive chronic kidney disease with stage 1 through stage 4 chronic kidney disease, or unspecified chronic kidney disease; N18.9 Chronic kidney disease, unspecified; Z82.49 Family history of ischemic heart disease and other diseases of the circulatory system; Z83.3 Family history of diabetes mellitus; Z79.899 Other long term (current) drug therapy

== ENCOUNTER → 2019-07-22 | Outpatient (CLI) | payer OTHER ==
[~2019-07-22] MED LIST changes: +CARVEDILOL6.25 MG PO; +CEFUROXIME AXE250 MG PO; +FUROSEMIDE40 MG PO; +GABAPENTIN800 MG PO; +HYDRALAZINE HYD50 MG PO; +Ipratropium Brom3 ML NEB; +POTASSIUM CHLO20 ME4 PO; +PREDNISONE5 MG PO; +VITAMIN D50000 UNIT PO
[2019-07-22 13:11] LABS: HEMATOCRIT 49.1 % (42.0-52.0); HEMOGLOBIN 16.4 g/dl (14.0-18.0); MEAN CELL VOLUME 95.5 fl (80.0-94.0); MEAN CORPUSCULAR HGB 31.9 pg (27.0-31.0); MEAN CORPUSCULAR HGB CONC 33.4 g/dl (33.0-37.0); MEAN PLATELET VOLUME 9.2 fl (9.6-12.3); RED BLOOD COUNT 5.14 10*6/uL (4.50-5.90); RED CELL DISTRI WIDTH 13.6 % (0-14.5); WHITE BLOOD COUNT 9.3 10*3/uL (4.8-10.8)
[2019-07-22 13:37] LABS: ALBUMIN 3.3 gm/dl (3.1-4.5); ALKALINE PHOSPHATASE 68 U/L (45-117); BUN 11 mg/dl (7-24); CHLORIDE 105 mmol/L (98-107); CHOLESTEROL 153 mg/dL (<200); CPK 126 U/L (39-308); CREATININE 1.44 mg/dL (0.70-1.30); HDL CHOLESTEROL 35 mg/dl (40-60); LDL CHOLESTEROL 82 mg/dL (9-159); POTASSIUM 4.2 mmol/L (3.5-5.1); SGOT/AST 10 IU/L (3-35); SGPT/ALT 16 U/L (12-78); SODIUM 139 mmol/L (136-145); TRIGLYCERIDES 182 mg/dl (<150); VLDL CHOLESTEROL 36 mg/dL (6-40)
== END | disposition home or self-care (01) ==
LOC: LAB 12:41
PROVIDERS: Family Medicine
DX: E78.00 Pure hypercholesterolemia, unspecified (principal); E55.9 Vitamin D deficiency, unspecified; I10 Essential (primary) hypertension; M54.5 Low back pain; E87.5 Hyperkalemia

== ENCOUNTER → 2019-11-09 | Outpatient (CLI) | payer OTHER ==
[2019-11-09 13:21] LABS: HEMATOCRIT 54.4 % (42.0-52.0); HEMOGLOBIN 17.9 g/dl (14.0-18.0); MEAN CORPUSCULAR HGB 30.9 pg (27.0-31.0); MEAN CORPUSCULAR HGB CONC 32.9 g/dl (33.0-37.0); MEAN PLATELET VOLUME 9.4 fl (9.6-12.3); RED BLOOD COUNT 5.79 10*6/uL (4.50-5.90); WHITE BLOOD COUNT 9.8 10*3/uL (4.8-10.8)
[2019-11-09 13:52] LABS: ALBUMIN 3.6 gm/dl (3.1-4.5); CREATININE 1.82 mg/dL (0.70-1.30); POTASSIUM 3.5 mmol/L (3.5-5.1); TOTAL PROTEIN 7.6 gm/dL (6.4-8.2)
== END | disposition home or self-care (01) ==
LOC: LAB 12:50
PROVIDERS: Family Medicine
DX: M54.5 Low back pain (principal); E11.9 Type 2 diabetes mellitus without complications; E55.9 Vitamin D deficiency, unspecified; E78.00 Pure hypercholesterolemia, unspecified; I10 Essential (primary) hypertension

== ENCOUNTER 2020-04-11 21:11 | Emergency (ER) | payer OTHER ==
[2020-04-11 21:29] VITALS: BP 168/125
[2020-04-11 22:20] LABS: BASO % 0.4 % (0.0-1.0); EOS # 0.4 10*3/uL (0.0-0.4); EOS % 4.6 % (1.0-4.0); HEMATOCRIT 49.7 % (42.0-52.0); LYMPH # 1.8 10*3/uL (1.3-4.4); LYMPH % 19.6 % (27.0-41.0); MEAN CELL VOLUME 95.9 fl (80.0-94.0); MEAN CORPUSCULAR HGB 31.5 pg (27.0-31.0); MEAN CORPUSCULAR HGB CONC 32.8 g/dl (33.0-37.0); MEAN PLATELET VOLUME 9.1 fl (9.6-12.3); MONO # 0.7 10*3/uL (0.1-1.0); MONO % 7.1 % (3.0-9.0); NEUT # 6.2 10*3/uL (2.3-7.9); NEUT % 68.1 % (47.0-73.0); PLATELET COUNT AUTOMATED 296 10*3/uL (130-400); RED BLOOD COUNT 5.18 10*6/uL (4.50-5.90); RED CELL DISTRI WIDTH 13.6 % (0-14.5); WHITE BLOOD COUNT 9.1 10*3/uL (4.8-10.8)
[2020-04-11 22:34] LABS: ALBUMIN 3.4 gm/dl (3.1-4.5); CREATININE 1.5 mg/dL (0.70-1.30); POTASSIUM 3.2 mmol/L (3.5-5.1); TOTAL PROTEIN 7.8 gm/dL (6.4-8.2); URIC ACID 8.1 mg/dL (3.5-7.2)
== END 2020-04-11 23:28 | disposition home or self-care (01) ==
LOC: ED 21:11
PROVIDERS: Nurse Practitioner Family
DX: M10.9 Gout, unspecified (principal); M79.671 Pain in right foot; J44.9 Chronic obstructive pulmonary disease, unspecified; I10 Essential (primary) hypertension; K21.9 Gastro-esophageal reflux disease without esophagitis; M19.90 Unspecified osteoarthritis, unspecified site; Z79.899 Other long term (current) drug therapy

== ENCOUNTER 2020-06-20 04:59 | Observation (INO) | payer OTHER ==
[~2020-06-20] VITALS: Ht 167.6 cm; Wt 95.8 kg
[2020-06-20] VITALS (7 sets, daily range): BP systolic 138–178; BP diastolic 75–99
[2020-06-20 05:51] LABS: BASO # 0.1 10*3/uL (0.0-0.1); BASO % 0.4 % (0.0-1.0); EOS # 0.4 10*3/uL (0.0-0.4); EOS % 2.7 % (1.0-4.0); HEMATOCRIT 52.1 % (42.0-52.0); LYMPH # 2.4 10*3/uL (1.3-4.4); LYMPH % 18.4 % (27.0-41.0); MEAN CELL VOLUME 92.5 fl (80.0-94.0); MEAN CORPUSCULAR HGB 30.6 pg (27.0-31.0); MEAN PLATELET VOLUME 9.4 fl (9.6-12.3); MONO # 1.1 10*3/uL (0.1-1.0); MONO % 8.7 % (3.0-9.0); NEUT # 8.9 10*3/uL (2.3-7.9); NEUT % 69.5 % (47.0-73.0); PLATELET COUNT AUTOMATED 342 10*3/uL (130-400); RED BLOOD COUNT 5.63 10*6/uL (4.50-5.90); RED CELL DISTRI WIDTH 13.2 % (0-14.5); WHITE BLOOD COUNT 12.8 10*3/uL (4.8-10.8)
[2020-06-20 05:54] LABS: ALBUMIN 3.6 gm/dl (3.1-4.5); CREATININE 1.72 mg/dL (0.70-1.30)
[2020-06-21] VITALS: BP 162/88; BP 170/90
[2020-06-21 05:30] VITALS: BP 148/60
[2020-06-21 08:00] VITALS: BP 144/90
== END 2020-06-21 11:22 | disposition home or self-care (01) ==
LOC: ED 04:59 → EDHOLD 06:37 → 5E 07:14
PROVIDERS: Emergency Medicine; ADMIT Internal Medicine; ATTEND Internal Medicine
DX: J44.0 Chronic obstructive pulmonary disease with (acute) lower respiratory infection (principal); I10 Essential (primary) hypertension; M54.5 Low back pain; G89.29 Other chronic pain; T20.04XA Burn of unspecified degree of nose (septum), initial encounter; X08.8XXA Exposure to other specified smoke, fire and flames, initial encounter; Y93.89 Activity, other specified; Y92.89 Other specified places as the place of occurrence of the external cause; Y99.8 Other external cause status

== ENCOUNTER → 2020-08-03 | Outpatient (CLI) | payer OTHER | END | disposition home or self-care (01) | LOC: US 10:00 | PROVIDERS: ATTEND Nurse Practitioner Family | DX: J44.9 Chronic obstructive pulmonary disease, unspecified (principal); N28.1 Cyst of kidney, acquired; M41.86 Other forms of scoliosis, lumbar region; I10 Essential (primary) hypertension; R00.0 Tachycardia, unspecified; Z86.79 Personal history of other diseases of the circulatory system ==

== ENCOUNTER → 2020-08-31 | Outpatient (CLI) | payer OTHER ==
[~2020-08-31] MED LIST changes: +AMLODIPINE BESY10 MG PO; +AMLODIPINE BESYL5 MG PO; +ASPIRIN ADULT L81 M2 PO; +COREG12.5 M1 PO; +PRAVASTATIN SOD10 MG PO
== END | disposition home or self-care (01) ==
LOC: CT 08-28 11:00
PROVIDERS: ATTEND Nurse Practitioner Family
DX: M51.16 Intervertebral disc disorders with radiculopathy, lumbar region (principal); G89.29 Other chronic pain

== ENCOUNTER 2020-09-04 21:50 | Inpatient (IN) | payer OTHER ==
[~2020-09-04] VITALS: Ht 167.6 cm; Wt 97.7 kg
[~2020-09-04 21:50] MED LIST changes: -AMLODIPINE BESY10 MG PO; -AMLODIPINE BESYL5 MG PO; -ASPIRIN ADULT L81 M2 PO; -COREG12.5 M1 PO; -PRAVASTATIN SOD10 MG PO
[2020-09-04 22:00] VITALS: BP 164/107
[2020-09-04 22:27] LABS: BASO # 0.1 10*3/uL (0.0-0.1); BASO % 0.5 % (0.0-1.0); EOS # 0.3 10*3/uL (0.0-0.4); EOS % 3.3 % (1.0-4.0); HEMATOCRIT 51.2 % (42.0-52.0); LYMPH # 1.6 10*3/uL (1.3-4.4); LYMPH % 16.2 % (27.0-41.0); MEAN CELL VOLUME 93.4 fl (80.0-94.0); MEAN CORPUSCULAR HGB 30.8 pg (27.0-31.0); MEAN PLATELET VOLUME 9.4 fl (9.6-12.3); MONO # 0.9 10*3/uL (0.1-1.0); MONO % 9.1 % (3.0-9.0); NEUT # 7.1 10*3/uL (2.3-7.9); NEUT % 70.6 % (47.0-73.0); PLATELET COUNT AUTOMATED 330 10*3/uL (130-400); RED BLOOD COUNT 5.48 10*6/uL (4.50-5.90); RED CELL DISTRI WIDTH 14.1 % (0-14.5)
[2020-09-04 22:38] LABS: ACT PARTIAL THROMBO TIME 26.8 SECONDS (20.0-32.1)
[2020-09-04 22:51] LABS: ALBUMIN 3.4 gm/dl (3.1-4.5); CREATININE 1.49 mg/dL (0.70-1.30); POTASSIUM 3.6 mmol/L (3.5-5.1); TOTAL PROTEIN 7.9 gm/dL (6.4-8.2)
[2020-09-04 22:54] LABS: TROPONIN I 0.11 ng/ml (<0.045)
[2020-09-05] VITALS: BP 158/110
[2020-09-05 03:56] LABS: BASO % 0.3 % (0.0-1.0); EOS % 0.3 % (1.0-4.0); HEMATOCRIT 50.1 % (42.0-52.0); LYMPH # 0.6 10*3/uL (1.3-4.4); LYMPH % 6.3 % (27.0-41.0); MEAN CELL VOLUME 92.4 fl (80.0-94.0); MEAN CORPUSCULAR HGB 30.4 pg (27.0-31.0); MEAN CORPUSCULAR HGB CONC 32.9 g/dl (33.0-37.0); MEAN PLATELET VOLUME 9.3 fl (9.6-12.3); MONO # 0.1 10*3/uL (0.1-1.0); MONO % 0.9 % (3.0-9.0); NEUT # 8.2 10*3/uL (2.3-7.9); NEUT % 91.9 % (47.0-73.0); PLATELET COUNT AUTOMATED 326 10*3/uL (130-400); RED BLOOD COUNT 5.42 10*6/uL (4.50-5.90); RED CELL DISTRI WIDTH 14.1 % (0-14.5); WHITE BLOOD COUNT 8.9 10*3/uL (4.8-10.8)
[2020-09-05 04:07] LABS: BUN 16 mg/dl (7-24); CHLORIDE 103 mmol/L (98-107); CREATININE 1.44 mg/dL (0.70-1.30); POTASSIUM 3.7 mmol/L (3.5-5.1); SODIUM 139 mmol/L (136-145)
[2020-09-05 05:06] VITALS: BP 165/76
--- NOTE | 2020-09-05 05:06 | NUR ---
PT PLACED ON 2 LITERS O2 VIA NC PER HOME ORDERS. O2 SAT NOW 94. SAFETY PRECAUTIONS INTACT. WILL CONTINUE TO MONITOR.
[2020-09-05 06:24] VITALS: BP 139/73
--- NOTE | 2020-09-05 06:42 | NUR ---
PT SLEEPING WHEN THIS RN ENTERED ROOM TO ADMINISTER MEDICATIONS. PT REQUESTING DRINK. 4 OZ JUICE AND GINGERALE GIVEN TO PT. PT C/O PAIN OF 7. THIS RN TO ADMINISTER PAIN MEDICATION. PT DENIES OTHER NEEDS AT THIS TIME.
--- NOTE | 2020-09-05 07:16 | NUR ---
PT REPORT GIVEN TO ABILIO BARNES
[2020-09-05 08:00] VITALS: BP 137/49
--- NOTE | 2020-09-05 08:04 | NUR ---
PATIENT REQUESTING BREAKFAST AT THIS TIME. BREAKFAST TRAY ORDERED.
--- NOTE | 2020-09-05 16:12 | NUR ---
ATTEMPTED TO CALL ADMITTING NURSE TO HAVE PATIENT TRANSPORTED TO THE 5TH FLOOR. NO ANSWER. THIS NURSE CALLED FLOOR TO NOTIFY HER AND HAVE HER CALL BACK.
--- NOTE | 2020-09-05 16:30 | NUR ---
Time: 1629 A 60 year old MALE admitted to 5E under services of YOEL SYED DO. Pt. arrived via bed from ER. Chief complaint: COPD, CKD,A FIB. MARYAM MCFADDEN
[2020-09-05] MEDS ORDERED: ASPIRIN ADULT L81 M2 PO (17:21)
[2020-09-05] MEDS ORDERED: PRAVASTATIN SOD10 MG PO (17:22)
[2020-09-05] MEDS ORDERED: AMLODIPINE BESY10 MG PO (17:22)
--- NOTE | 2020-09-05 19:33 | NUR ---
NOTIFIED DR. KELSEY OF [facility] HEART RATE. HE IS AWARE. ALREADY ORDERED TESTS FOR AM. ECHO AND NM.
[2020-09-05 20:00] VITALS: BP 175/98
[2020-09-06] VITALS (7 sets, daily range): BP systolic 90–148; BP diastolic 50–108
--- NOTE | 2020-09-06 00:43 | NUR ---
DR. OSWALD NOTIFIED OF PATIENT'S B/P OF 148/108. PATIENT STATES B/P MEDS FROM HOME HAVE NOT BEEN ORDERED YET. DR. OSWALD WILL ORDER HOME MEDS.
[2020-09-06 07:29] LABS: BASO % 0.1 % (0.0-1.0); EOS % 0.1 % (1.0-4.0); HEMATOCRIT 47.4 % (42.0-52.0); LYMPH # 0.9 10*3/uL (1.3-4.4); MEAN CELL VOLUME 93.5 fl (80.0-94.0); MEAN CORPUSCULAR HGB 30.2 pg (27.0-31.0); MEAN CORPUSCULAR HGB CONC 32.3 g/dl (33.0-37.0); MEAN PLATELET VOLUME 9.7 fl (9.6-12.3); MONO # 0.6 10*3/uL (0.1-1.0); MONO % 4.1 % (3.0-9.0); NEUT # 13.5 10*3/uL (2.3-7.9); NEUT % 89.2 % (47.0-73.0); PLATELET COUNT AUTOMATED 304 10*3/uL (130-400); RED BLOOD COUNT 5.07 10*6/uL (4.50-5.90); WHITE BLOOD COUNT 15.1 10*3/uL (4.8-10.8)
[2020-09-06 07:43] LABS: CHLORIDE 103 mmol/L (98-107); POTASSIUM 3.7 mmol/L (3.5-5.1); SODIUM 139 mmol/L (136-145)
[2020-09-06 07:45] LABS: CREATININE 1.44 mg/dL (0.70-1.30)
[2020-09-06 07:54] LABS: BUN 28 mg/dl (7-24)
--- NOTE | 2020-09-06 08:00 | NUR ---
PT RESTING IN BED/ NO DISTRESS NOTED. WILL MONITOR
--- NOTE | 2020-09-06 10:49 | NUR ---
INFORMED SIGNED CONSENT OBTAINED FOR LEXISCAN STRESS TEST WITH DR KELSEY. RESTING EKG WAP WITH PVC. PULSE OX 94% LUNGS CLEARLY DIMINISHED ON 2L OF O2. PT COMPLETED ONE MINUTE OF A LEXISCAN PROTOCOL WITH PT RECEIVING LEXISCAN 0.4MG IV OVER 10 SECONDS. RARE PVC NOTED. NO ST CHANGES NOTED. PT C/O SOB WITH INJECTION, THAT RESOVLED. LAST RECOVERY HR OF 89 BP 134/86. PT IN STABLE CONDITION, AWAITING NUCLEAR IMAGES.
--- NOTE | 2020-09-06 13:22 | NUR ---
PT REQUESTED AND GIVEN NORCO FOR C/O GEN PAIN PT RATES PAIN 5/10 WILL MONITOR
--- NOTE | 2020-09-06 14:00 | NUR ---
NORCO HELPED PER PT WILL MONITOR
--- NOTE | 2020-09-06 17:02 | NUR ---
DR MONTEIRO NOTIFIED OF 13 BEAT RUN OF [place]ACH. PT ASYMPTOMATIC.
[2020-09-06] MEDS ORDERED: AMLODIPINE BESYL5 MG PO (17:03)
[2020-09-06] MEDS ORDERED: COREG12.5 M1 PO (17:03)
--- NOTE | 2020-09-06 21:04 | NUR ---
PT REQUESTED AND WAS MEDICATED WITH NORCO FOR C/O GENERALIZED PAIN. CALL LIGHT IN REACH. WILL MONITOR
--- NOTE | 2020-09-06 22:00 | NUR ---
MEDICATION EFFECTIVE PER PT. WILL MONITOR
--- NOTE | 2020-09-07 | NUR ---
PT RESTING IN BED NO DISTRESS NOTED. NO VOICED C/O. WILL MONITOR CALL LIGHT WITHIN REACH
[2020-09-07 06:12] LABS: CREATININE 1.52 mg/dL (0.70-1.30)
[2020-09-07 06:32] LABS: BASO % 0.1 % (0.0-1.0); EOS % 0.1 % (1.0-4.0); HEMATOCRIT 47.8 % (42.0-52.0); LYMPH # 1.2 10*3/uL (1.3-4.4); MEAN CORPUSCULAR HGB 30.3 pg (27.0-31.0); MEAN CORPUSCULAR HGB CONC 31.6 g/dl (33.0-37.0); MEAN PLATELET VOLUME 9.8 fl (9.6-12.3); MONO # 0.9 10*3/uL (0.1-1.0); MONO % 6.3 % (3.0-9.0); NEUT # 11.5 10*3/uL (2.3-7.9); NEUT % 84.1 % (47.0-73.0); PLATELET COUNT AUTOMATED 309 10*3/uL (130-400); RED BLOOD COUNT 4.98 10*6/uL (4.50-5.90); RED CELL DISTRI WIDTH 14.5 % (0-14.5); WHITE BLOOD COUNT 13.6 10*3/uL (4.8-10.8)
--- NOTE | 2020-09-07 06:51 | NUR ---
PT RESTED WELL THROUGHOUT THE NIGHT NO VOICED C/O. WILL MONITOR
--- NOTE | 2020-09-07 07:30 | NUR ---
TOOK OVER CARE OF PT. PT RESTING IN BED. RESPIRATIONS UNLABORED ON 2L NC. NO S/S OF DISTRESS. CALL LIGHT IN REACH.
[2020-09-07 08:00] VITALS: BP 101/79
--- NOTE | 2020-09-07 08:51 | NUR ---
PT GIVEN MORPHINE FOR C/O PAIN TO BACK. WILL MONITOR FOR EFFECTIVENESS.
--- NOTE | 2020-09-07 09:51 | NUR ---
PT STATES THAT MORPHINE IS EFFECTIVE.
--- NOTE | 2020-09-07 11:19 | NUR ---
ATTEMPTED TO CALL REPORT TO [facility].
--- NOTE | 2020-09-07 11:26 | NUR ---
REPORT CALLED TO HOME IMPROVEMENT ADVISOR AT [facility].
--- NOTE | 2020-09-07 11:36 | NUR ---
Discharge instructions reviewed with patient/family. Patient receptive and verbalizes understanding. Follow-up care arranged. Written instructions given to patient/family. INES MAY
--- NOTE | 2020-09-07 12:00 | NUR ---
PT TRANSPORTED VIA [facility] TO [facility] CATH PROCEDURE.
== END 2020-09-07 12:00 | disposition other institution (70) | DRG 145 ==
LOC: ED 21:50 → EDHOLD 23:22 → 5E 23:22
PROVIDERS: Internal Medicine; Student in an Organized Health Care Education/Training Program; ADMIT Internal Medicine; ATTEND Internal Medicine
PROC: 4A02XM4 Measurement of Cardiac Total Activity, External Approach (ICD-10-PCS; principal; 2020-09-06)
PROC: 3E073KZ Introduction of Other Diagnostic Substance into Coronary Artery, Percutaneous Approach (ICD-10-PCS; 2020-09-06)
DX: J20.9 Acute bronchitis, unspecified (principal); J44.1 Chronic obstructive pulmonary disease with (acute) exacerbation; E83.41 Hypermagnesemia; R09.02 Hypoxemia; J44.0 Chronic obstructive pulmonary disease with (acute) lower respiratory infection; I13.0 Hypertensive heart and chronic kidney disease with heart failure and stage 1 through stage 4 chronic kidney disease, or unspecified chronic kidney disease; M51.36 Other intervertebral disc degeneration, lumbar region; M10.9 Gout, unspecified; I50.32 Chronic diastolic (congestive) heart failure; E66.01 Morbid (severe) obesity due to excess calories; F17.210 Nicotine dependence, cigarettes, uncomplicated; E78.5 Hyperlipidemia, unspecified; I42.9 Cardiomyopathy, unspecified; K21.9 Gastro-esophageal reflux disease without esophagitis; I49.9 Cardiac arrhythmia, unspecified; I25.9 Chronic ischemic heart disease, unspecified; I48.11 Longstanding persistent atrial fibrillation; R79.89 Other specified abnormal findings of blood chemistry; N18.31 Chronic kidney disease, stage 3a; Z82.49 Family history of ischemic heart disease and other diseases of the circulatory system; Z83.3 Family history of diabetes mellitus; Z79.899 Other long term (current) drug therapy; Z71.6 Tobacco abuse counseling; Z68.34 Body mass index [BMI] 34.0-34.9, adult

== ENCOUNTER 2021-04-30 15:19 | Inpatient (IN) | payer OTHER ==
[~2021-04-30] VITALS: Ht 167.6 cm; Wt 95.3 kg
[~2021-04-30 15:19] MED LIST changes: +AMLODIPINE BESY10 MG PO; +AMLODIPINE BESYL5 MG PO; +ASPIRIN ADULT L81 M2 PO; +COREG12.5 M1 PO; +PRAVASTATIN SOD10 MG PO
[2021-04-30 15:27] VITALS: BP 129/38
[2021-04-30 16:12] LABS: BASO % 0.4 % (0.0-1.0); EOS # 0.4 10*3/uL (0.0-0.4); EOS % 4.4 % (1.0-4.0); HEMATOCRIT 48.8 % (42.0-52.0); LYMPH # 1.5 10*3/uL (1.3-4.4); LYMPH % 15.5 % (27.0-41.0); MEAN CELL VOLUME 91.9 fl (80.0-94.0); MEAN CORPUSCULAR HGB 30.5 pg (27.0-31.0); MEAN CORPUSCULAR HGB CONC 33.2 g/dl (33.0-37.0); MEAN PLATELET VOLUME 9.1 fl (9.6-12.3); MONO # 0.9 10*3/uL (0.1-1.0); MONO % 8.6 % (3.0-9.0); NEUT % 70.6 % (47.0-73.0); PLATELET COUNT AUTOMATED 297 10*3/uL (130-400); RED BLOOD COUNT 5.31 10*6/uL (4.50-5.90); RED CELL DISTRI WIDTH 13.8 % (0-14.5); WHITE BLOOD COUNT 9.9 10*3/uL (4.8-10.8)
[2021-04-30 16:30] LABS: ALKALINE PHOSPHATASE 62 U/L (45-117); BUN 16 mg/dl (7-24); CHLORIDE 103 mmol/L (98-107); CREATININE 1.92 mg/dL (0.70-1.30); SGOT/AST 15 IU/L (3-35); SGPT/ALT 18 U/L (12-78); SODIUM 137 mmol/L (136-145); TOTAL PROTEIN 7.2 gm/dL (6.4-8.2)
[2021-04-30 16:31] LABS: TROPONIN I < 0.015 ng/ml (<0.045)
[2021-04-30 16:45] VITALS: BP 130/42
[2021-04-30 17:37] VITALS: BP 138/72
[2021-04-30 18:20] VITALS: BP 151/86
[2021-04-30 20:00] VITALS: BP 151/83
[2021-05-01] VITALS: BP 148/71
[2021-05-01 06:20] LABS: BASO % 0.1 % (0.0-1.0); EOS % 0.1 % (1.0-4.0); HEMATOCRIT 46.7 % (42.0-52.0); LYMPH # 0.8 10*3/uL (1.3-4.4); LYMPH % 9.3 % (27.0-41.0); MEAN CELL VOLUME 91.7 fl (80.0-94.0); MEAN CORPUSCULAR HGB 30.5 pg (27.0-31.0); MEAN CORPUSCULAR HGB CONC 33.2 g/dl (33.0-37.0); MEAN PLATELET VOLUME 9.2 fl (9.6-12.3); MONO # 0.1 10*3/uL (0.1-1.0); NEUT # 7.2 10*3/uL (2.3-7.9); NEUT % 89.1 % (47.0-73.0); PLATELET COUNT AUTOMATED 270 10*3/uL (130-400); RED BLOOD COUNT 5.09 10*6/uL (4.50-5.90); RED CELL DISTRI WIDTH 13.3 % (0-14.5); WHITE BLOOD COUNT 8.1 10*3/uL (4.8-10.8)
[2021-05-01 06:25] LABS: ALBUMIN 2.9 gm/dl (3.1-4.5); POTASSIUM 3.8 mmol/L (3.5-5.1)
[2021-05-01 06:29] LABS: CREATININE 1.66 mg/dL (0.70-1.30); TOTAL PROTEIN 6.7 gm/dL (6.4-8.2)
[2021-05-01 06:34] LABS: ACT PARTIAL THROMBO TIME 29.2 SECONDS (20.0-32.1)
[2021-05-01 08:00] VITALS: BP 147/117
[2021-05-01 12:00] VITALS: BP 131/80
[2021-05-01 16:00] VITALS: BP 135/84
[2021-05-01 20:00] VITALS: BP 140/42
[2021-05-02] VITALS: BP 137/62
[2021-05-02 06:07] LABS: CREATININE 1.61 mg/dL (0.70-1.30); POTASSIUM 3.7 mmol/L (3.5-5.1)
[2021-05-02 06:29] LABS: BASO % 0.1 % (0.0-1.0); HEMATOCRIT 47.8 % (42.0-52.0); LYMPH # 0.9 10*3/uL (1.3-4.4); LYMPH % 4.9 % (27.0-41.0); MEAN CELL VOLUME 93.7 fl (80.0-94.0); MEAN CORPUSCULAR HGB 30.4 pg (27.0-31.0); MEAN CORPUSCULAR HGB CONC 32.4 g/dl (33.0-37.0); MEAN PLATELET VOLUME 9.8 fl (9.6-12.3); MONO # 0.9 10*3/uL (0.1-1.0); NEUT # 16.4 10*3/uL (2.3-7.9); NEUT % 89.4 % (47.0-73.0); PLATELET COUNT AUTOMATED 293 10*3/uL (130-400); WHITE BLOOD COUNT 18.3 10*3/uL (4.8-10.8)
[2021-05-02 12:00] VITALS: BP 144/83
[2021-05-02] MEDS ORDERED: DOXYCYCLINE100 M3 PO (13:04)
[2021-05-02] MEDS ORDERED: PREDNISONE10 MG PO (13:04)
[2021-05-02] MEDS ORDERED: CARVEDILOL6.25 MG PO (13:04)
== END 2021-05-02 13:45 | disposition home or self-care (01) | DRG 194 ==
LOC: ED 15:19 → 5E 17:03 → EDHOLD 17:03 → 5E 17:56
PROVIDERS: Family Medicine; Internal Medicine; Social Worker Clinical; ADMIT Internal Medicine; ATTEND Internal Medicine
DX: I13.0 Hypertensive heart and chronic kidney disease with heart failure and stage 1 through stage 4 chronic kidney disease, or unspecified chronic kidney disease (principal); J44.1 Chronic obstructive pulmonary disease with (acute) exacerbation; N18.32 Chronic kidney disease, stage 3b; N17.0 Acute kidney failure with tubular necrosis; E44.0 Moderate protein-calorie malnutrition; I49.1 Atrial premature depolarization; I50.23 Acute on chronic systolic (congestive) heart failure; G89.29 Other chronic pain; M47.896 Other spondylosis, lumbar region; F17.210 Nicotine dependence, cigarettes, uncomplicated; R73.9 Hyperglycemia, unspecified; F12.90 Cannabis use, unspecified, uncomplicated; M1A.9XX0 Chronic gout, unspecified, without tophus (tophi); E66.9 Obesity, unspecified; I34.0 Nonrheumatic mitral (valve) insufficiency; F10.11 Alcohol abuse, in remission; I25.10 Atherosclerotic heart disease of native coronary artery without angina pectoris; I42.8 Other cardiomyopathies; E83.41 Hypermagnesemia; Z68.33 Body mass index [BMI] 33.0-33.9, adult; Z89.9 Acquired absence of limb, unspecified; Z98.890 Other specified postprocedural states

== ENCOUNTER 2021-06-16 08:45 | Inpatient (IN) | payer OTHER ==
[2021-06-16] VITALS (8 sets, daily range): BP systolic 129–157; BP diastolic 57–98
[~2021-06-16] VITALS: Ht 172.7 cm; Wt 100.9 kg
[~2021-06-16 08:45] MED LIST changes: +DOXYCYCLINE100 M3 PO; +PREDNISONE10 MG PO
[2021-06-16 08:58] LABS: BASO % 0.3 % (0.0-1.0); EOS # 0.3 10*3/uL (0.0-0.4); EOS % 2.5 % (1.0-4.0); HEMATOCRIT 45.9 % (42.0-52.0); LYMPH # 1.5 10*3/uL (1.3-4.4); LYMPH % 13.2 % (27.0-41.0); MEAN CORPUSCULAR HGB 30.2 pg (27.0-31.0); MEAN CORPUSCULAR HGB CONC 31.2 g/dl (33.0-37.0); MEAN PLATELET VOLUME 9.3 fl (9.6-12.3); MONO # 0.8 10*3/uL (0.1-1.0); MONO % 7.5 % (3.0-9.0); NEUT # 8.4 10*3/uL (2.3-7.9); PLATELET COUNT AUTOMATED 293 10*3/uL (130-400); RED BLOOD COUNT 4.73 10*6/uL (4.50-5.90); RED CELL DISTRI WIDTH 13.9 % (0-14.5)
[2021-06-16 09:17] LABS: ALBUMIN 3.1 gm/dl (3.1-4.5); ALKALINE PHOSPHATASE 76 U/L (45-117); BUN 14 mg/dl (7-24); CHLORIDE 109 mmol/L (98-107); CREATININE 1.26 mg/dL (0.70-1.30); POTASSIUM 4.5 mmol/L (3.5-5.1); SGOT/AST 17 IU/L (3-35); SGPT/ALT 24 U/L (12-78); SODIUM 143 mmol/L (136-145); TOTAL PROTEIN 6.9 gm/dL (6.4-8.2); TROPONIN I 0.023 ng/ml (<0.045)
[2021-06-16 09:49] LABS: BILIRUBIN Negative (Negative); BLOOD Negative (Negative); CLARITY Clear (Clear); COLOR Yellow (Yellow); GLUCOSE Negative (Negative); KETONE Negative (Negative); LEUKO ESTERASE Negative (Negative); NITRITE Negative (Negative); UROBILINOGEN 0.2 E.U./dl (0.0-1.0)
[2021-06-16 10:02] LABS: COARSE GRANULAR CAST 0-2; HYALINE CAST 0-2
[2021-06-16 10:04] LABS: BACTERIA 1+; RBC 0-2 rbc/hpf (0-2); WBC 0-2 wbc/hpf (0-5)
[2021-06-16 10:59] LABS: ABG BASE EXCESS -0.4 mmol/L (-2.0-2.0); ARTERIAL BLOOD GAS PH 7.314 (7.35-7.45); ARTERIAL BLOOD GAS PO2 82.1 (80-90)
[2021-06-16 19:14] LABS: ABG BASE EXCESS 2.2 mmol/L (-2.0-2.0); ARTERIAL BLOOD GAS PH 7.402 (7.35-7.45); ARTERIAL BLOOD GAS PO2 80.3 (80-90)
[2021-06-17] VITALS: BP 172/76
[2021-06-17 02:18] VITALS: BP 142/68
[2021-06-17 05:50] LABS: ALBUMIN 2.9 gm/dl (3.1-4.5); BUN 14 mg/dl (7-24); CHLORIDE 105 mmol/L (98-107); CREATININE 1.15 mg/dL (0.70-1.30); POTASSIUM 4.1 mmol/L (3.5-5.1); SGOT/AST 15 IU/L (3-35); SGPT/ALT 20 U/L (12-78); SODIUM 140 mmol/L (136-145); TOTAL PROTEIN 6.4 gm/dL (6.4-8.2)
[2021-06-17 05:52] LABS: ALKALINE PHOSPHATASE 60 U/L (45-117); LDH 224 U/L (87-241)
[2021-06-17 06:21] LABS: BASO % 0.1 % (0.0-1.0); LYMPH # 0.7 10*3/uL (1.3-4.4); LYMPH % 8.9 % (27.0-41.0); MEAN CORPUSCULAR HGB 30.5 pg (27.0-31.0); MEAN CORPUSCULAR HGB CONC 32.4 g/dl (33.0-37.0); MEAN PLATELET VOLUME 9.9 fl (9.6-12.3); MONO # 0.5 10*3/uL (0.1-1.0); MONO % 6.2 % (3.0-9.0); NEUT % 84.2 % (47.0-73.0); PLATELET COUNT AUTOMATED 295 10*3/uL (130-400); RED BLOOD COUNT 4.36 10*6/uL (4.50-5.90); RED CELL DISTRI WIDTH 13.7 % (0-14.5); WHITE BLOOD COUNT 8.3 10*3/uL (4.8-10.8)
[2021-06-17 09:00] VITALS: BP 173/76
[2021-06-17 12:00] VITALS: BP 124/73
[2021-06-17 16:00] VITALS: BP 136/70
[2021-06-17 20:00] VITALS: BP 175/90
[2021-06-18] VITALS: BP 154/79
[2021-06-18 06:55] LABS: BASO % 0.1 % (0.0-1.0); EOS % 0.1 % (1.0-4.0); HEMATOCRIT 39.5 % (42.0-52.0); LYMPH # 1.1 10*3/uL (1.3-4.4); LYMPH % 9.1 % (27.0-41.0); MEAN CELL VOLUME 94.3 fl (80.0-94.0); MEAN CORPUSCULAR HGB 30.3 pg (27.0-31.0); MEAN CORPUSCULAR HGB CONC 32.2 g/dl (33.0-37.0); MONO % 8.1 % (3.0-9.0); NEUT # 9.8 10*3/uL (2.3-7.9); PLATELET COUNT AUTOMATED 267 10*3/uL (130-400); RED BLOOD COUNT 4.19 10*6/uL (4.50-5.90); RED CELL DISTRI WIDTH 14.2 % (0-14.5); WHITE BLOOD COUNT 11.9 10*3/uL (4.8-10.8)
[2021-06-18 07:06] LABS: ALBUMIN 2.8 gm/dl (3.1-4.5); CREATININE 1.46 mg/dL (0.70-1.30); POTASSIUM 4.1 mmol/L (3.5-5.1)
[2021-06-18 08:00] VITALS: BP 166/74
[2021-06-18 12:00] VITALS: BP 126/50
[2021-06-18 16:00] VITALS: BP 133/65
[2021-06-18 20:00] VITALS: BP 155/76
[2021-06-19] VITALS: BP 140/61
[2021-06-19 05:41] LABS: ALBUMIN 2.8 gm/dl (3.1-4.5); ALKALINE PHOSPHATASE 55 U/L (45-117); BUN 27 mg/dl (7-24); CHLORIDE 103 mmol/L (98-107); CREATININE 1.32 mg/dL (0.70-1.30); POTASSIUM 4.2 mmol/L (3.5-5.1); SGOT/AST 9 IU/L (3-35); SGPT/ALT 18 U/L (12-78); SODIUM 139 mmol/L (136-145); TOTAL PROTEIN 6.1 gm/dL (6.4-8.2)
[2021-06-19 06:10] LABS: BASO % 0.1 % (0.0-1.0); HEMATOCRIT 41.1 % (42.0-52.0); LYMPH # 0.8 10*3/uL (1.3-4.4); LYMPH % 7.1 % (27.0-41.0); MEAN CELL VOLUME 94.1 fl (80.0-94.0); MEAN CORPUSCULAR HGB 30.2 pg (27.0-31.0); MEAN CORPUSCULAR HGB CONC 32.1 g/dl (33.0-37.0); MEAN PLATELET VOLUME 9.6 fl (9.6-12.3); MONO # 0.3 10*3/uL (0.1-1.0); MONO % 2.4 % (3.0-9.0); NEUT # 10.3 10*3/uL (2.3-7.9); NEUT % 89.4 % (47.0-73.0); PLATELET COUNT AUTOMATED 306 10*3/uL (130-400); RED BLOOD COUNT 4.37 10*6/uL (4.50-5.90); RED CELL DISTRI WIDTH 13.6 % (0-14.5); WHITE BLOOD COUNT 11.5 10*3/uL (4.8-10.8)
[2021-06-19 09:12] VITALS: BP 122/60
[2021-06-19] MEDS ORDERED: DOXYCYCLINE100 M3 PO (12:48)
[2021-06-19] MEDS ORDERED: PREDNISONE10 MG PO (12:48)
[2021-06-19] MEDS ORDERED: FUROSEMIDE40 MG PO (12:48)
== END 2021-06-19 13:33 | disposition home or self-care (01) | DRG 194 ==
LOC: ED 08:45 → 4E 11:20 → EDHOLD 11:20 → 4E 11:38
PROVIDERS: Emergency Medicine; Family Medicine; Internal Medicine; Internal Medicine Critical Care Medicine; ADMIT Emergency Medicine; ATTEND Emergency Medicine
PROC: 5A09357 Assistance with Respiratory Ventilation, Less than 24 Consecutive Hours, Continuous Positive Airway Pressure (ICD-10-PCS; principal; 2021-06-18)
PROC: 5A09357 Assistance with Respiratory Ventilation, Less than 24 Consecutive Hours, Continuous Positive Airway Pressure (ICD-10-PCS; 2021-06-19)
DX: I13.0 Hypertensive heart and chronic kidney disease with heart failure and stage 1 through stage 4 chronic kidney disease, or unspecified chronic kidney disease (principal); J15.6 Pneumonia due to other Gram-negative bacteria; I21.4 Non-ST elevation (NSTEMI) myocardial infarction; J96.22 Acute and chronic respiratory failure with hypercapnia; Z20.822 Contact with and (suspected) exposure to COVID-19; J20.9 Acute bronchitis, unspecified; J44.1 Chronic obstructive pulmonary disease with (acute) exacerbation; J44.0 Chronic obstructive pulmonary disease with (acute) lower respiratory infection; R73.9 Hyperglycemia, unspecified; E66.9 Obesity, unspecified; I50.43 Acute on chronic combined systolic (congestive) and diastolic (congestive) heart failure; I34.0 Nonrheumatic mitral (valve) insufficiency; I42.8 Other cardiomyopathies; M10.9 Gout, unspecified; J96.21 Acute and chronic respiratory failure with hypoxia; M51.36 Other intervertebral disc degeneration, lumbar region; N18.31 Chronic kidney disease, stage 3a; E87.4 Mixed disorder of acid-base balance; N17.9 Acute kidney failure, unspecified; K21.9 Gastro-esophageal reflux disease without esophagitis; I48.21 Permanent atrial fibrillation; E44.0 Moderate protein-calorie malnutrition; I44.7 Left bundle-branch block, unspecified; I25.10 Atherosclerotic heart disease of native coronary artery without angina pectoris; F17.210 Nicotine dependence, cigarettes, uncomplicated; Z71.6 Tobacco abuse counseling; Z99.81 Dependence on supplemental oxygen; Z82.49 Family history of ischemic heart disease and other diseases of the circulatory system; Z83.3 Family history of diabetes mellitus; Z79.82 Long term (current) use of aspirin; Z79.899 Other long term (current) drug therapy; Z68.33 Body mass index [BMI] 33.0-33.9, adult

== ENCOUNTER 2021-07-09 11:17 | Emergency (ER) | payer OTHER ==
[~2021-07-09] VITALS: Ht 167.6 cm; Wt 99.8 kg
[2021-07-09 11:17] VITALS: BP 158/83
[2021-07-09 12:18] LABS: BASO % 0.3 % (0.0-1.0); EOS # 0.3 10*3/uL (0.0-0.4); EOS % 2.9 % (1.0-4.0); HEMATOCRIT 42.5 % (42.0-52.0); LYMPH # 1.1 10*3/uL (1.3-4.4); LYMPH % 10.4 % (27.0-41.0); MEAN CELL VOLUME 95.9 fl (80.0-94.0); MEAN CORPUSCULAR HGB 30.7 pg (27.0-31.0); MEAN PLATELET VOLUME 9.4 fl (9.6-12.3); MONO # 0.6 10*3/uL (0.1-1.0); MONO % 6.1 % (3.0-9.0); NEUT # 8.2 10*3/uL (2.3-7.9); NEUT % 79.4 % (47.0-73.0); PLATELET COUNT AUTOMATED 236 10*3/uL (130-400); RED BLOOD COUNT 4.43 10*6/uL (4.50-5.90); RED CELL DISTRI WIDTH 14.2 % (0-14.5); WHITE BLOOD COUNT 10.3 10*3/uL (4.8-10.8)
[2021-07-09 12:35] LABS: ALBUMIN 2.8 gm/dl (3.1-4.5); ALKALINE PHOSPHATASE 63 U/L (45-117); BUN 20 mg/dl (7-24); CHLORIDE 109 mmol/L (98-107); CREATININE 1.54 mg/dL (0.70-1.30); POTASSIUM 3.9 mmol/L (3.5-5.1); SGOT/AST 18 IU/L (3-35); SGPT/ALT 28 U/L (12-78); SODIUM 144 mmol/L (136-145); TOTAL PROTEIN 6.5 gm/dL (6.4-8.2); TROPONIN I < 0.015 ng/ml (<0.045)
[2021-07-09] MEDS ORDERED: PREDNISONE50 MG PO (13:08)
[2021-07-09] MEDS ORDERED: VIBRAMYCIN100 MG PO (13:08)
== END 2021-07-09 13:35 | disposition home or self-care (01) ==
LOC: ED 11:17
PROVIDERS: Emergency Medicine
DX: J44.1 Chronic obstructive pulmonary disease with (acute) exacerbation (principal); Z20.822 Contact with and (suspected) exposure to COVID-19; I25.10 Atherosclerotic heart disease of native coronary artery without angina pectoris; K21.9 Gastro-esophageal reflux disease without esophagitis; M10.9 Gout, unspecified; E66.9 Obesity, unspecified; N18.30 Chronic kidney disease, stage 3 unspecified; F17.200 Nicotine dependence, unspecified, uncomplicated; Z79.82 Long term (current) use of aspirin; Z79.899 Other long term (current) drug therapy

== ENCOUNTER → 2021-12-26 | Outpatient (CLI) | payer OTHER ==
[~2021-12-26] MED LIST changes: +PREDNISONE50 MG PO; +VIBRAMYCIN100 MG PO
[2021-12-26 14:13] LABS: BASO % 0.4 % (0.0-1.0); EOS # 0.3 10*3/uL (0.0-0.4); EOS % 3.3 % (1.0-4.0); HEMATOCRIT 49.5 % (42.0-52.0); LYMPH # 1.5 10*3/uL (1.3-4.4); LYMPH % 16.5 % (27.0-41.0); MEAN CELL VOLUME 92.7 fl (80.0-94.0); MEAN CORPUSCULAR HGB 29.8 pg (27.0-31.0); MEAN CORPUSCULAR HGB CONC 32.1 g/dl (33.0-37.0); MEAN PLATELET VOLUME 9.5 fl (9.6-12.3); MONO # 0.7 10*3/uL (0.1-1.0); MONO % 7.7 % (3.0-9.0); NEUT # 6.7 10*3/uL (2.3-7.9); NEUT % 71.8 % (47.0-73.0); PLATELET COUNT AUTOMATED 287 10*3/uL (130-400); RED BLOOD COUNT 5.34 10*6/uL (4.50-5.90); RED CELL DISTRI WIDTH 13.6 % (0-14.5); WHITE BLOOD COUNT 9.4 10*3/uL (4.8-10.8)
[2021-12-26 14:29] LABS: CREATININE 1.45 mg/dL (0.70-1.30); POTASSIUM 4.5 mmol/L (3.5-5.1); TOTAL PROTEIN 7.1 gm/dL (6.4-8.2)
[2021-12-26 15:34] LABS: FERRITIN 50.3 ng/mL (22.0-322.0)
== END | disposition home or self-care (01) ==
LOC: LAB 12:55
PROVIDERS: ATTEND Nurse Practitioner Family
DX: E78.2 Mixed hyperlipidemia (principal); E87.5 Hyperkalemia; G25.81 Restless legs syndrome; E55.9 Vitamin D deficiency, unspecified; E87.6 Hypokalemia; I10 Essential (primary) hypertension

== ENCOUNTER 2022-08-03 16:49 | Emergency (ER) | payer OTHER ==
[~2022-08-03] VITALS: Ht 167.6 cm; Wt 99.8 kg
[~2022-08-03 16:49] MED LIST changes: +DOXYCYCLINE HY100 M3 PO; +METOPROLOL SUCC50 M1 PO
[2022-08-03 16:52] VITALS: BP 158/80
[2022-08-03 17:15] LABS: ABG BASE EXCESS 4.2 mmol/L (-2.0-2.0); ARTERIAL BLOOD GAS PH 7.4 (7.35-7.45)
[2022-08-03 17:20] LABS: BASO % 0.4 % (0.0-1.0); EOS # 0.4 10*3/uL (0.0-0.4); EOS % 3.6 % (1.0-4.0); HEMATOCRIT 43.4 % (42.0-52.0); LYMPH # 1.5 10*3/uL (1.3-4.4); MEAN CELL VOLUME 96.4 fl (80.0-94.0); MEAN CORPUSCULAR HGB 31.8 pg (27.0-31.0); MEAN CORPUSCULAR HGB CONC 32.9 g/dl (33.0-37.0); MEAN PLATELET VOLUME 9.1 fl (9.6-12.3); MONO # 0.8 10*3/uL (0.1-1.0); MONO % 8.3 % (3.0-9.0); NEUT # 7.3 10*3/uL (2.3-7.9); NEUT % 72.4 % (47.0-73.0); PLATELET COUNT AUTOMATED 283 10*3/uL (130-400); RED CELL DISTRI WIDTH 12.9 % (0-14.5); WHITE BLOOD COUNT 10.1 10*3/uL (4.8-10.8)
[2022-08-03 17:31] LABS: ACT PARTIAL THROMBO TIME 26.8 SECONDS (20.0-32.1); INTERNATIONAL NORM RATIO 0.9 (2.0-3.5)
[2022-08-03 17:36] LABS: ALKALINE PHOSPHATASE 73 U/L (45-117); BUN 20 mg/dl (7-24); CHLORIDE 110 mmol/L (98-107); CREATININE 1.21 mg/dL (0.70-1.30); POTASSIUM 4.1 mmol/L (3.5-5.1); SGOT/AST 11 IU/L (3-35); SGPT/ALT 15 U/L (12-78); SODIUM 142 mmol/L (136-145); TOTAL PROTEIN 6.6 gm/dL (6.4-8.2)
[2022-08-03] MEDS ORDERED: VIBRAMYCIN100 MG PO (18:51)
[2022-08-03] MEDS ORDERED: PREDNISONE50 MG PO (18:51)
== END 2022-08-03 19:13 | disposition home or self-care (01) ==
LOC: ED 16:49
PROVIDERS: Emergency Medicine
DX: J44.1 Chronic obstructive pulmonary disease with (acute) exacerbation (principal); I25.10 Atherosclerotic heart disease of native coronary artery without angina pectoris; K21.9 Gastro-esophageal reflux disease without esophagitis; M10.9 Gout, unspecified; E66.9 Obesity, unspecified; N18.30 Chronic kidney disease, stage 3 unspecified; Z79.899 Other long term (current) drug therapy; Z98.890 Other specified postprocedural states

== ENCOUNTER 2023-03-17 09:41 | Emergency (ER) | payer OTHER ==
[~2023-03-17] VITALS: Ht 167.6 cm; Wt 99.8 kg
[2023-03-17 09:57] VITALS: BP 210/120
[2023-03-17 10:35] LABS: BASO % 0.5 % (0.0-1.0); EOS # 0.4 10*3/uL (0.0-0.4); EOS % 4.2 % (1.0-4.0); HEMATOCRIT 47.3 % (42.0-52.0); LYMPH # 1.5 10*3/uL (1.3-4.4); LYMPH % 17.9 % (27.0-41.0); MEAN CELL VOLUME 93.1 fl (80.0-94.0); MEAN CORPUSCULAR HGB 31.3 pg (27.0-31.0); MEAN CORPUSCULAR HGB CONC 33.6 g/dl (33.0-37.0); MEAN PLATELET VOLUME 9.1 fl (9.6-12.3); MONO # 0.9 10*3/uL (0.1-1.0); MONO % 10.8 % (3.0-9.0); NEUT # 5.6 10*3/uL (2.3-7.9); NEUT % 65.8 % (47.0-73.0); PLATELET COUNT AUTOMATED 344 10*3/uL (130-400); RED BLOOD COUNT 5.08 10*6/uL (4.50-5.90); RED CELL DISTRI WIDTH 13.9 % (0-14.5); WHITE BLOOD COUNT 8.6 10*3/uL (4.8-10.8)
[2023-03-17 10:58] LABS: ALKALINE PHOSPHATASE 77 U/L (46-116); BUN 9 mg/dl (9-23); CHLORIDE 100 mmol/L (98-107); POTASSIUM 3.4 mmol/L (3.4-5.1); SGPT/ALT 12 U/L (10-49); TOTAL PROTEIN 7.2 gm/dL (6.0-8.0)
[2023-03-17] MEDS ORDERED: PREDNISONE50 MG PO ×2 (12:01)
[2023-03-17] MEDS ORDERED: VIBRA-TAB100 MG PO ×2 (12:01)
[2023-03-17] MEDS ORDERED: NORVASC5 MG PO (12:06)
[2023-03-17] MEDS ORDERED: Zestril,Prinivi40 MG PO (12:06)
[2023-03-19] MEDS ORDERED: ALLOPURINOL300 MG PO (15:05)
[2023-03-19] MEDS ORDERED: ROPINIROLE HYDRO3 MG PO (18:17)
== END 2023-03-17 12:21 | disposition home or self-care (01) ==
LOC: ED 09:41
PROVIDERS: Internal Medicine
DX: J44.1 Chronic obstructive pulmonary disease with (acute) exacerbation (principal); I16.0 Hypertensive urgency; K21.9 Gastro-esophageal reflux disease without esophagitis; M19.90 Unspecified osteoarthritis, unspecified site; E78.00 Pure hypercholesterolemia, unspecified; F31.9 Bipolar disorder, unspecified; Z98.890 Other specified postprocedural states; Z95.5 Presence of coronary angioplasty implant and graft; F17.200 Nicotine dependence, unspecified, uncomplicated; F10.10 Alcohol abuse, uncomplicated; F12.90 Cannabis use, unspecified, uncomplicated

== ENCOUNTER 2023-09-26 12:49 | Emergency (ER) | payer OTHER ==
[~2023-09-26] VITALS: Ht 167.6 cm; Wt 108.4 kg
[~2023-09-26 12:49] MED LIST changes: +ALLOPURINOL300 MG PO; +ASPIRIN ADULT L81 M1 PO; +AVPAK AZITHROM250 M1 PO; +DULOXETINE HCL30 MG PO; +DULOXETINE HCL60 MG PO; +JARDIANCE10 MG PO; +LASIX80 MG PO; +MUCUS RELIEF600 MG PO; +NICODERM CQ1 EAC2 TD; +NORVASC5 MG PO; +PREDNISONE20 M1 PO; +ROPINIROLE HYDRO3 MG PO; +TORSEMIDE20 MG PO; +VIBRA-TAB100 MG PO; +VITAMIN D350 MCG PO; +ZITHROMAX500 MG PO; +Zestril,Prinivi40 MG PO
[2023-09-26 13:41] LABS: BASO % 0.3 % (0.0-1.0); EOS # 0.4 10*3/uL (0.0-0.4); EOS % 3.7 % (1.0-4.0); LYMPH # 1.9 10*3/uL (1.3-4.4); LYMPH % 16.9 % (27.0-41.0); MEAN CORPUSCULAR HGB 31.1 pg (27.0-31.0); MEAN CORPUSCULAR HGB CONC 32.1 g/dl (33.0-37.0); MEAN PLATELET VOLUME 9.9 fl (9.6-12.3); MONO # 0.7 10*3/uL (0.1-1.0); MONO % 6.3 % (3.0-9.0); NEUT # 8.2 10*3/uL (2.3-7.9); NEUT % 71.7 % (47.0-73.0); PLATELET COUNT AUTOMATED 212 10*3/uL (130-400); RED BLOOD COUNT 4.02 10*6/uL (4.50-5.90); RED CELL DISTRI WIDTH 14.6 % (0-14.5); WHITE BLOOD COUNT 11.4 10*3/uL (4.8-10.8)
[2023-09-26 13:55] LABS: ACT PARTIAL THROMBO TIME 22.1 SECONDS (20.0-32.1)
[2023-09-26 14:05] LABS: TOTAL PROTEIN 5.3 gm/dL (6.0-8.0)
[2023-09-26] MEDS ORDERED: AVPAK AZITHROM250 M1 PO (14:16)
[2023-09-26] MEDS ORDERED: PREDNISONE20 M1 PO (14:16)
[2023-09-26 14:44] VITALS: BP 132/66
== END 2023-09-26 15:58 | disposition home or self-care (01) ==
LOC: ED 12:49
PROVIDERS: Emergency Medicine
DX: J44.1 Chronic obstructive pulmonary disease with (acute) exacerbation (principal); Z20.822 Contact with and (suspected) exposure to COVID-19; I50.9 Heart failure, unspecified; F17.210 Nicotine dependence, cigarettes, uncomplicated; Z88.1 Allergy status to other antibiotic agents; Z91.041 Radiographic dye allergy status; Z79.899 Other long term (current) drug therapy; Z79.2 Long term (current) use of antibiotics; Z79.82 Long term (current) use of aspirin; Z98.890 Other specified postprocedural states

== ENCOUNTER 2023-11-20 14:13 | Emergency (ER) | payer OTHER ==
[~2023-11-20] VITALS: Ht 167.6 cm; Wt 99.8 kg
[2023-11-20 14:48] VITALS: BP 156/68
[2023-11-20 14:50] LABS: BASO % 0.2 % (0.0-1.0); EOS # 0.2 10*3/uL (0.0-0.4); EOS % 2.4 % (1.0-4.0); HEMATOCRIT 43.2 % (42.0-52.0); LYMPH # 1.6 10*3/uL (1.3-4.4); LYMPH % 16.6 % (27.0-41.0); MEAN CORPUSCULAR HGB 31.5 pg (27.0-31.0); MEAN CORPUSCULAR HGB CONC 31.5 g/dl (33.0-37.0); MEAN PLATELET VOLUME 9.3 fl (9.6-12.3); MONO # 0.9 10*3/uL (0.1-1.0); MONO % 9.8 % (3.0-9.0); NEUT # 6.6 10*3/uL (2.3-7.9); NEUT % 70.7 % (47.0-73.0); PLATELET COUNT AUTOMATED 306 10*3/uL (130-400); RED BLOOD COUNT 4.32 10*6/uL (4.50-5.90); RED CELL DISTRI WIDTH 15.5 % (0-14.5); WHITE BLOOD COUNT 9.3 10*3/uL (4.8-10.8)
[2023-11-20 15:11] LABS: ALKALINE PHOSPHATASE 72 U/L (46-116); BUN 13 mg/dl (9-23); CHLORIDE 109 mmol/L (98-107); POTASSIUM 4.1 mmol/L (3.4-5.1); SGPT/ALT 20 U/L (5-49); TOTAL PROTEIN 5.9 gm/dL (6.0-8.0)
[2023-11-20] MEDS ORDERED: AVPAK AZITHROM250 MG PO (16:03)
[2023-11-20] MEDS ORDERED: PREDNISONE50 MG PO (16:03)
[2023-11-20] MEDS ORDERED: VIBRAMYCIN100 MG PO (16:03)
== END 2023-11-20 16:08 | disposition home or self-care (01) ==
LOC: ED 14:13
PROVIDERS: Physician Assistant Medical
DX: J18.9 Pneumonia, unspecified organism (principal); I50.9 Heart failure, unspecified; J44.9 Chronic obstructive pulmonary disease, unspecified; I11.0 Hypertensive heart disease with heart failure; I48.91 Unspecified atrial fibrillation; F31.9 Bipolar disorder, unspecified; E78.5 Hyperlipidemia, unspecified; K21.9 Gastro-esophageal reflux disease without esophagitis; M19.90 Unspecified osteoarthritis, unspecified site; E78.00 Pure hypercholesterolemia, unspecified; F17.210 Nicotine dependence, cigarettes, uncomplicated; F12.90 Cannabis use, unspecified, uncomplicated; F10.10 Alcohol abuse, uncomplicated; Z88.1 Allergy status to other antibiotic agents; Z91.041 Radiographic dye allergy status; Z95.5 Presence of coronary angioplasty implant and graft; Z98.890 Other specified postprocedural states

== ENCOUNTER 2023-12-02 18:20 | Emergency (ER) | payer OTHER ==
[~2023-12-02] VITALS: Ht 170.1 cm; Wt 95.3 kg
[~2023-12-02 18:20] MED LIST changes: +AVPAK AZITHROM250 MG PO
[2023-12-02] MEDS ORDERED: methylPREDNISolone sod succ 125 MG VIAL IV ONE (18:25)
[2023-12-02] MEDS ORDERED: Albuterol Sulf/Ipratropium 3 ML VIAL NEB ONE ×2 (18:25→20:55)
[2023-12-02 18:41] LABS: BASO % 0.2 % (0.0-1.0); EOS # 0.3 10*3/uL (0.0-0.4); EOS % 2.3 % (1.0-4.0); HEMATOCRIT 45.9 % (42.0-52.0); LYMPH # 2.1 10*3/uL (1.3-4.4); LYMPH % 15.5 % (27.0-41.0); MEAN CELL VOLUME 98.9 fl (80.0-94.0); MEAN CORPUSCULAR HGB CONC 31.4 g/dl (33.0-37.0); MEAN PLATELET VOLUME 9.5 fl (9.6-12.3); MONO # 1.2 10*3/uL (0.1-1.0); MONO % 8.4 % (3.0-9.0); NEUT % 72.9 % (47.0-73.0); PLATELET COUNT AUTOMATED 302 10*3/uL (130-400); RED BLOOD COUNT 4.64 10*6/uL (4.50-5.90); RED CELL DISTRI WIDTH 14.6 % (0-14.5); WHITE BLOOD COUNT 13.7 10*3/uL (4.8-10.8)
[2023-12-02 18:54] LABS: ACT PARTIAL THROMBO TIME 26.5 SECONDS (20.0-32.1)
[2023-12-02 18:58] LABS: ALKALINE PHOSPHATASE 62 U/L (46-116); BUN 15 mg/dl (9-23); CHLORIDE 107 mmol/L (98-107); LIPASE 32 U/L (12-53); POTASSIUM 3.9 mmol/L (3.4-5.1); SGPT/ALT 17 U/L (5-49)
[2023-12-02 19:35] VITALS: BP 147/68
[2023-12-02] MEDS ORDERED: ZITHROMAX250 MG PO (20:57)
[2023-12-02] MEDS ORDERED: PREDNISONE20 M1 PO (20:57)
== END 2023-12-02 21:21 | disposition home or self-care (01) ==
LOC: ED 18:20
PROVIDERS: Emergency Medicine
DX: J44.1 Chronic obstructive pulmonary disease with (acute) exacerbation (principal); R79.82 Elevated C-reactive protein (CRP); D72.829 Elevated white blood cell count, unspecified; E44.1 Mild protein-calorie malnutrition; Z68.1 Body mass index [BMI] 19.9 or less, adult; I12.9 Hypertensive chronic kidney disease with stage 1 through stage 4 chronic kidney disease, or unspecified chronic kidney disease; N18.31 Chronic kidney disease, stage 3a; K21.9 Gastro-esophageal reflux disease without esophagitis; M19.90 Unspecified osteoarthritis, unspecified site; E78.00 Pure hypercholesterolemia, unspecified; F31.9 Bipolar disorder, unspecified; F12.90 Cannabis use, unspecified, uncomplicated; F17.200 Nicotine dependence, unspecified, uncomplicated; F10.10 Alcohol abuse, uncomplicated; Z88.1 Allergy status to other antibiotic agents; Z91.041 Radiographic dye allergy status; Z98.890 Other specified postprocedural states; Z95.5 Presence of coronary angioplasty implant and graft

== ENCOUNTER 2024-02-25 15:43 | Inpatient (IN) | payer OTHER ==
[~2024-02-25] VITALS: Ht 167.1 cm; Wt 95.0 kg
[~2024-02-25 15:43] MED LIST changes: +Carafate1 GM PO; +ELIQUIS5 M1 PO; +METOPROLOL SUCC25 M2 PO; +OMEPRAZOLE40 MG PO; +PROTONIX40 MG PO; +SOAANZ40 M1 PO; +SYMB160 INH; +VENT7GM INH; +ZYVOX600 MG PO
[2024-02-25 15:59] VITALS: BP 124/79
[2024-02-25] MEDS ORDERED: methylPREDNISolone sod succ 125 MG VIAL IM ONE (16:00)
[2024-02-25] MEDS ORDERED: Albuterol Sulfate 2.5 MG/3 ML VIAL NEB ONE (16:00)
[2024-02-25 16:12] LABS: BASO % 0.3 % (0.0-1.0); EOS # 0.3 10*3/uL (0.0-0.4); EOS % 2.2 % (1.0-4.0); HEMATOCRIT 37.3 % (42.0-52.0); LYMPH # 1.6 10*3/uL (1.3-4.4); LYMPH % 13.6 % (27.0-41.0); MEAN CELL VOLUME 97.4 fl (80.0-94.0); MEAN CORPUSCULAR HGB 30.5 pg (27.0-31.0); MEAN CORPUSCULAR HGB CONC 31.4 g/dl (33.0-37.0); MEAN PLATELET VOLUME 9.2 fl (9.6-12.3); MONO # 0.8 10*3/uL (0.1-1.0); MONO % 6.8 % (3.0-9.0); NEUT # 8.7 10*3/uL (2.3-7.9); PLATELET COUNT AUTOMATED 303 10*3/uL (130-400); RED BLOOD COUNT 3.83 10*6/uL (4.50-5.90); RED CELL DISTRI WIDTH 15.7 % (0-14.5); WHITE BLOOD COUNT 11.4 10*3/uL (4.8-10.8)
[2024-02-25 16:35] LABS: ALKALINE PHOSPHATASE 74 U/L (46-116); BUN 15 mg/dl (9-23); CHLORIDE 108 mmol/L (98-107); POTASSIUM 3.7 mmol/L (3.4-5.1); SGPT/ALT 12 U/L (5-49); TOTAL PROTEIN 5.6 gm/dL (6.0-8.0)
[2024-02-25] MEDS ORDERED: FUROSEMIDE 40 MG/4 ML VIAL IV ONE (16:50)
[2024-02-25] MEDS ORDERED: Labetalol Hydrochloride 20 MG/4 ML SYR IV ONE (16:55)
[2024-02-25 17:29] VITALS: BP 109/56
[2024-02-25] MEDS ORDERED: Ceftriaxone Sodium 1 GM/10 ML SYR IV ONE (18:10)
[2024-02-25] MEDS ORDERED: AZITHROMYCIN 250 MG TAB PO ONE (18:10)
[2024-02-25 20:30] VITALS: BP 136/88
[2024-02-25] MEDS ORDERED: Albuterol Sulf/Ipratropium 3 ML VIAL NEB PRN (20:30)
[2024-02-25 20:43] VITALS: BP 124/84
[2024-02-25] MEDS ORDERED: Piperacillin Sodium/Tazobact 4.5 GM in SODIUM CHLORIDE 0.9% 100 ML IV SCH (22:00)
[2024-02-25] MEDS ORDERED: APIXABAN 5 MG TAB PO SCH (22:00)
[2024-02-25] MEDS ORDERED: TRELEGY ELLIPT1 EACH INH (22:04)
[2024-02-26] MEDS ORDERED: VANCOMYCIN/WATER FOR INJ (PEG) 250 ML IV SCH
[2024-02-26] MEDS ORDERED: Acetaminophen/Hydrocodone 5 MG/325 MG TABLET PO PRN (03:45)
[2024-02-26] MEDS ORDERED: ACETAMINOPHEN 325 MG TAB PO PRN (03:45)
[2024-02-26 05:45] LABS: BILIRUBIN Negative (Negative); BLOOD Negative (Negative); CLARITY Clear (Clear); COLOR Yellow (Yellow); GLUCOSE 1+ (Negative); KETONE Negative (Negative); LEUKO ESTERASE Negative (Negative); NITRITE Negative (Negative); UROBILINOGEN 0.2 E.U./dl (0.0-1.0)
[2024-02-26 05:53] LABS: BACTERIA 1+
[2024-02-26 06:00] LABS: HEMATOCRIT 37.3 % (42.0-52.0); MEAN CELL VOLUME 95.9 fl (80.0-94.0); MEAN CORPUSCULAR HGB 30.1 pg (27.0-31.0); MEAN CORPUSCULAR HGB CONC 31.4 g/dl (33.0-37.0); MEAN PLATELET VOLUME 9.4 fl (9.6-12.3); PLATELET COUNT AUTOMATED 345 10*3/uL (130-400); RED BLOOD COUNT 3.89 10*6/uL (4.50-5.90); RED CELL DISTRI WIDTH 15.2 % (0-14.5); WHITE BLOOD COUNT 9.6 10*3/uL (4.8-10.8)
[2024-02-26] MEDS ORDERED: Pantoprazole Sodium 40 MG TAB PO SCH (06:00)
[2024-02-26 06:06] LABS: MANUAL DIFF REFLEX YES
[2024-02-26 06:13] LABS: POTASSIUM 4.1 mmol/L (3.4-5.1)
[2024-02-26] MEDS ORDERED: SUCRALFATE 1 GM TAB PO SCH (07:30)
[2024-02-26 07:31] LABS: PLATELET SUFFICIENCY NORMAL (NORMAL); TOTAL CELLS COUNTED 100 #CELLS
[2024-02-26 08:00] VITALS: BP 146/98
[2024-02-26] MEDS ORDERED: ALLOPURINOL 300 MG TAB PO SCH (10:00)
[2024-02-26] MEDS ORDERED: ATORVASTATIN CALCIUM 10 MG TAB PO SCH (10:00)
[2024-02-26] MEDS ORDERED: amLODIPine besylate 5 MG TAB PO SCH (10:00)
[2024-02-26] MEDS ORDERED: methylPREDNISolone sod succ 40 MG VIAL IV SCH (10:00)
[2024-02-26] MEDS ORDERED: methylPREDNISolone sod succ 40 MG IV SCH (10:00)
[2024-02-26] MEDS ORDERED: TRELEGY ELLIPTA INH SCH (10:00)
[2024-02-26] MEDS ORDERED: Nicotine 21 MG PATCH T SCH (10:00)
[2024-02-26] MEDS ORDERED: Doxycycline Hyclate 100 MG in SODIUM CHLORIDE 0.9% 250 ML IV SCH (10:00)
[2024-02-26] MEDS ORDERED: GUAIFENESIN 600 MG TAB ER PO SCH (10:00)
[2024-02-26] MEDS ORDERED: LISINOPRIL 40 MG TAB PO SCH (10:00)
[2024-02-26] MEDS ORDERED: ASPIRIN, CHEWABLE 81 MG TAB PO SCH (10:00)
[2024-02-26] MEDS ORDERED: Duloxetine Hydrochloride 60 MG CAP PO SCH (10:00)
[2024-02-26] MEDS ORDERED: METOPROLOL SUCCINATE XR 25 MG TAB PO SCH (10:00)
[2024-02-26] MEDS ORDERED: FUROSEMIDE 40 MG/4 ML VIAL IV SCH (10:00)
[2024-02-26] MEDS ORDERED: DIGOXIN 500 MCG/2 ML AMP IV SCH (13:10)
[2024-02-26 16:00] VITALS: BP 142/82
[2024-02-26] MEDS ORDERED: Ceftriaxone Sodium 1 GM in SYRINGE INFUSION 10 ML IV SCH (18:00)
[2024-02-26 20:00] VITALS: BP 133/66
[2024-02-26] MEDS ORDERED: Ropinirole Hydrochloride 1 MG TAB PO SCH (22:00)
[2024-02-27] VITALS (7 sets, daily range): BP systolic 95–157; BP diastolic 50–83
[2024-02-27 05:35] LABS: POTASSIUM 4.3 mmol/L (3.4-5.1)
[2024-02-27 06:15] LABS: HEMATOCRIT 35.3 % (42.0-52.0); MEAN CELL VOLUME 97.8 fl (80.0-94.0); MEAN CORPUSCULAR HGB CONC 31.7 g/dl (33.0-37.0); MEAN PLATELET VOLUME 9.8 fl (9.6-12.3); PLATELET COUNT AUTOMATED 315 10*3/uL (130-400); RED BLOOD COUNT 3.61 10*6/uL (4.50-5.90); RED CELL DISTRI WIDTH 15.2 % (0-14.5); WHITE BLOOD COUNT 15.3 10*3/uL (4.8-10.8)
[2024-02-27 06:20] LABS: MANUAL DIFF REFLEX YES
[2024-02-27 06:58] LABS: PLATELET SUFFICIENCY NORMAL (NORMAL); POLYCHROMASIA SLIGHT; TOTAL CELLS COUNTED 100 #CELLS; TOXIC GRANULATION SLIGHT
[2024-02-27] MEDS ORDERED: hydrALAZINE hydrochloride 25 MG TAB PO SCH (14:00)
[2024-02-27] MEDS ORDERED: ISOSORBIDE DINITRATE 10 MG TAB PO SCH (14:00)
[2024-02-27] MEDS ORDERED: METOPROLOL SUCCINATE XR 50 MG TAB PO SCH (22:00)
[2024-02-28] VITALS: BP 135/74
[2024-02-28 04:33] VITALS: BP 159/92
[2024-02-28 04:46] LABS: ARTERIAL BLOOD GAS PH 7.263 (7.35-7.45)
[2024-02-28 06:05] LABS: POTASSIUM 4.3 mmol/L (3.4-5.1)
[2024-02-28 06:16] LABS: HEMATOCRIT 38.1 % (42.0-52.0); MEAN CELL VOLUME 100.3 fl (80.0-94.0); MEAN CORPUSCULAR HGB 30.8 pg (27.0-31.0); MEAN CORPUSCULAR HGB CONC 30.7 g/dl (33.0-37.0); MEAN PLATELET VOLUME 9.7 fl (9.6-12.3); PLATELET COUNT AUTOMATED 342 10*3/uL (130-400); RED CELL DISTRI WIDTH 15.4 % (0-14.5)
[2024-02-28 06:19] LABS: MANUAL DIFF REFLEX YES
[2024-02-28 06:56] LABS: TOTAL CELLS COUNTED 100 #CELLS
[2024-02-28 06:57] LABS: BURR CELLS FEW; PLATELET SUFFICIENCY NORMAL (NORMAL); POLYCHROMASIA SLIGHT; ROULEAUX SLIGHT
[2024-02-28 08:00] VITALS: BP 132/71
[2024-02-28] MEDS ORDERED: FUROSEMIDE 20 MG/2 ML VIAL IV SCH (10:00)
[2024-02-28 11:33] VITALS: BP 118/62
[2024-02-28] MEDS ORDERED: Cefepime Hydrochloride 2 GM,IV 1 EA in SODIUM CHLORIDE 0.9% 50 ML IV SCH (14:00)
[2024-02-28 15:17] VITALS: BP 111/70
[2024-02-28] MEDS ORDERED: VANCOMYCIN/WATER FOR INJ (PEG) 250 ML IV SCH (17:00)
[2024-02-28 20:00] VITALS: BP 136/63
[2024-02-29] VITALS: BP 140/72
[2024-02-29 05:24] LABS: POTASSIUM 4.3 mmol/L (3.4-5.1)
[2024-02-29 06:07] LABS: HEMATOCRIT 36.5 % (42.0-52.0); MEAN CELL VOLUME 97.9 fl (80.0-94.0); MEAN CORPUSCULAR HGB 30.6 pg (27.0-31.0); MEAN CORPUSCULAR HGB CONC 31.2 g/dl (33.0-37.0); MEAN PLATELET VOLUME 9.7 fl (9.6-12.3); PLATELET COUNT AUTOMATED 338 10*3/uL (130-400); RED BLOOD COUNT 3.73 10*6/uL (4.50-5.90); RED CELL DISTRI WIDTH 15.2 % (0-14.5); WHITE BLOOD COUNT 13.3 10*3/uL (4.8-10.8)
[2024-02-29 06:10] LABS: MANUAL DIFF REFLEX YES
[2024-02-29 07:22] LABS: BURR CELLS FEW; PLATELET SUFFICIENCY NORMAL (NORMAL); POLYCHROMASIA SLIGHT; ROULEAUX SLIGHT; TOTAL CELLS COUNTED 100 #CELLS; TOXIC GRANULATION SLIGHT
[2024-02-29 08:00] VITALS: BP 140/72
[2024-02-29] MEDS ORDERED: FUROSEMIDE 20 MG TAB PO SCH (10:00)
[2024-02-29 12:00] VITALS: BP 142/72
[2024-02-29 16:00] VITALS: BP 154/94
[2024-02-29 20:00] VITALS: BP 156/83
[2024-03-01] VITALS: BP 159/83
[2024-03-01 06:04] LABS: HEMATOCRIT 35.8 % (42.0-52.0); MEAN CORPUSCULAR HGB 30.3 pg (27.0-31.0); MEAN CORPUSCULAR HGB CONC 31.6 g/dl (33.0-37.0); MEAN PLATELET VOLUME 9.6 fl (9.6-12.3); PLATELET COUNT AUTOMATED 311 10*3/uL (130-400); RED BLOOD COUNT 3.73 10*6/uL (4.50-5.90); RED CELL DISTRI WIDTH 14.9 % (0-14.5)
[2024-03-01 06:11] LABS: POTASSIUM 4.1 mmol/L (3.4-5.1)
[2024-03-01 06:20] LABS: MANUAL DIFF REFLEX YES
[2024-03-01 07:14] LABS: TOTAL CELLS COUNTED 100 #CELLS
[2024-03-01 07:15] LABS: PLATELET SUFFICIENCY NORMAL (NORMAL)
[2024-03-01 08:00] VITALS: BP 168/92
[2024-03-01 12:00] VITALS: BP 168/84
[2024-03-01 14:42] VITALS: BP 123/80
[2024-03-01 20:00] VITALS: BP 142/82
[2024-03-02] VITALS: BP 138/72
[2024-03-02 06:01] LABS: BASO % 0.1 % (0.0-1.0); EOS % 0.1 % (1.0-4.0); HEMATOCRIT 33.2 % (42.0-52.0); LYMPH # 0.8 10*3/uL (1.3-4.4); MEAN CELL VOLUME 95.1 fl (80.0-94.0); MEAN CORPUSCULAR HGB 30.4 pg (27.0-31.0); MEAN CORPUSCULAR HGB CONC 31.9 g/dl (33.0-37.0); MEAN PLATELET VOLUME 9.8 fl (9.6-12.3); MONO # 0.7 10*3/uL (0.1-1.0); MONO % 7.4 % (3.0-9.0); NEUT # 8.4 10*3/uL (2.3-7.9); NEUT % 83.7 % (47.0-73.0); PLATELET COUNT AUTOMATED 307 10*3/uL (130-400); RED BLOOD COUNT 3.49 10*6/uL (4.50-5.90); RED CELL DISTRI WIDTH 14.8 % (0-14.5)
[2024-03-02 06:16] LABS: POTASSIUM 3.7 mmol/L (3.4-5.1)
[2024-03-02 08:00] VITALS: BP 137/64
[2024-03-02 09:39] LABS: ABG BASE EXCESS 2.6 mmol/L (-2.0-2.0); ARTERIAL BLOOD GAS PH 7.424 (7.35-7.45)
[2024-03-02] MEDS ORDERED: methylPREDNISolone sod succ 40 MG VIAL IV SCH (10:00)
[2024-03-02 12:00] VITALS: BP 132/93
[2024-03-02] MEDS ORDERED: FUROSEMIDE20 M1 PO (12:10)
[2024-03-02] MEDS ORDERED: APRESOLINE25 MG PO (12:10)
[2024-03-02] MEDS ORDERED: METOPROLOL SUCC50 M1 PO (12:10)
[2024-03-02] MEDS ORDERED: CEFEPIME1 GM/50 ML IV (12:10)
[2024-03-02] MEDS ORDERED: ISORDIL10 M1 PO (12:10)
[2024-03-02 16:00] VITALS: BP 158/65
[2024-03-02 20:00] VITALS: BP 164/75
[2024-03-02 22:20] LABS: BUN 25 mg/dl (9-23); CHLORIDE 106 mmol/L (98-107); POTASSIUM 3.5 mmol/L (3.4-5.1)
[2024-03-02 23:57] LABS: BILIRUBIN Negative (Negative); BLOOD Negative (Negative); CLARITY Clear (Clear); COLOR Yellow (Yellow); GLUCOSE Negative (Negative); KETONE Negative (Negative); LEUKO ESTERASE Negative (Negative); NITRITE Negative (Negative); SPECIFIC GRAVITY 1.015 (1.001-1.030); UROBILINOGEN 0.2 E.U./dl (0.0-1.0)
[2024-03-03] VITALS: BP 166/74
[2024-03-03 00:07] LABS: WBC 0-2 wbc/hpf (0-5)
[2024-03-03 08:00] VITALS: BP 167/95
[2024-03-03 12:00] VITALS: BP 149/73
[2024-03-03 12:01] VITALS: BP 149/73
== END 2024-03-03 13:35 | disposition home health service (06) | DRG 720 ==
LOC: ED 15:43 → EDHOLD 18:19 → ICCU 18:19
PROVIDERS: Family Medicine; Internal Medicine; Internal Medicine Critical Care Medicine; Nurse Practitioner; Student in an Organized Health Care Education/Training Program; ADMIT Internal Medicine; ATTEND Internal Medicine
PROC: 5A09357 Assistance with Respiratory Ventilation, Less than 24 Consecutive Hours, Continuous Positive Airway Pressure (ICD-10-PCS; 2024-02-28)
PROC: 5A09357 Assistance with Respiratory Ventilation, Less than 24 Consecutive Hours, Continuous Positive Airway Pressure (ICD-10-PCS; 2024-02-29)
PROC: 5A09357 Assistance with Respiratory Ventilation, Less than 24 Consecutive Hours, Continuous Positive Airway Pressure (ICD-10-PCS; 2024-03-01)
PROC: 05HB33Z Insertion of Infusion Device into Right Basilic Vein, Percutaneous Approach (ICD-10-PCS; 2024-03-01)
PROC: B54MZZA Ultrasonography of Right Upper Extremity Veins, Guidance (ICD-10-PCS; 2024-03-01)
PROC: 5A09357 Assistance with Respiratory Ventilation, Less than 24 Consecutive Hours, Continuous Positive Airway Pressure (ICD-10-PCS; principal; 2024-03-02)
DX: A41.9 Sepsis, unspecified organism (principal); J96.21 Acute and chronic respiratory failure with hypoxia; I50.23 Acute on chronic systolic (congestive) heart failure; E44.0 Moderate protein-calorie malnutrition; J15.1 Pneumonia due to Pseudomonas; J44.1 Chronic obstructive pulmonary disease with (acute) exacerbation; J44.0 Chronic obstructive pulmonary disease with (acute) lower respiratory infection; I24.89 Other forms of acute ischemic heart disease; I13.0 Hypertensive heart and chronic kidney disease with heart failure and stage 1 through stage 4 chronic kidney disease, or unspecified chronic kidney disease; I42.8 Other cardiomyopathies; I48.19 Other persistent atrial fibrillation; F17.210 Nicotine dependence, cigarettes, uncomplicated; D50.9 Iron deficiency anemia, unspecified; E87.8 Other disorders of electrolyte and fluid balance, not elsewhere classified; R73.9 Hyperglycemia, unspecified; W57.XXXA Bitten or stung by nonvenomous insect and other nonvenomous arthropods, initial encounter; M1A.9XX0 Chronic gout, unspecified, without tophus (tophi); N18.30 Chronic kidney disease, stage 3 unspecified; K21.9 Gastro-esophageal reflux disease without esophagitis; I25.10 Atherosclerotic heart disease of native coronary artery without angina pectoris; G25.81 Restless legs syndrome; E78.5 Hyperlipidemia, unspecified; F31.9 Bipolar disorder, unspecified; J20.9 Acute bronchitis, unspecified; Z88.1 Allergy status to other antibiotic agents; Z71.6 Tobacco abuse counseling; Y93.89 Activity, other specified; Y92.89 Other specified places as the place of occurrence of the external cause; Y99.8 Other external cause status; Z82.49 Family history of ischemic heart disease and other diseases of the circulatory system; Z91.041 Radiographic dye allergy status; Z79.82 Long term (current) use of aspirin; Z79.899 Other long term (current) drug therapy; Z91.118 Patient's noncompliance with dietary regimen for other reason; Z79.01 Long term (current) use of anticoagulants; I25.2 Old myocardial infarction; Z79.51 Long term (current) use of inhaled steroids

== ENCOUNTER 2024-03-29 12:38 | Inpatient (IN) | payer MEDICAID ==
[~2024-03-29] VITALS: Ht 167.6 cm; Wt 85.4 kg
[~2024-03-29 12:38] MED LIST changes: +APRESOLINE25 MG PO; +CEFEPIME1 GM/50 ML IV; +FUROSEMIDE20 M1 PO; +ISORDIL10 M1 PO; +TRELEGY ELLIPT1 EACH INH
[2024-03-29] MEDS ORDERED: Albuterol Sulfate 2.5 MG/3 ML VIAL NEB ONE (12:55)
[2024-03-29] MEDS ORDERED: methylPREDNISolone sod succ 125 MG VIAL IM ONE (12:55)
[2024-03-29 12:57] VITALS: BP 123/67
[2024-03-29 13:04] LABS: HEMATOCRIT 39.1 % (42.0-52.0); MEAN CELL VOLUME 97.5 fl (80.0-94.0); MEAN CORPUSCULAR HGB 30.4 pg (27.0-31.0); MEAN CORPUSCULAR HGB CONC 31.2 g/dl (33.0-37.0); MEAN PLATELET VOLUME 9.6 fl (9.6-12.3); NUCLEATED RED BLOOD CELL 0.1 10*3/uL (0.0-0.0); NUCLEATED RED BLOOD CELL 1.1 % (0.0-0.0); PLATELET COUNT AUTOMATED 418 10*3/uL (130-400); RED BLOOD COUNT 4.01 10*6/uL (4.50-5.90); RED CELL DISTRI WIDTH 16.7 % (0-14.5)
[2024-03-29 13:05] LABS: MANUAL DIFF REFLEX YES
[2024-03-29 13:23] LABS: PLATELET SUFFICIENCY HIGH (NORMAL); POLYCHROMASIA SLIGHT; TARGET CELLS FEW; TOTAL CELLS COUNTED 100 #CELLS
[2024-03-29 13:30] LABS: POTASSIUM 3.8 mmol/L (3.4-5.1); TOTAL PROTEIN 5.2 gm/dL (6.0-8.0)
[2024-03-29] MEDS ORDERED: FUROSEMIDE 20 MG/2 ML VIAL IV ONE (13:55)
[2024-03-29] MEDS ORDERED: Ondansetron Hydrochloride 4 MG/2 ML VIAL IV PRN (15:40)
[2024-03-29] MEDS ORDERED: ACETAMINOPHEN 325 MG TAB PO PRN (15:40)
[2024-03-29] MEDS ORDERED: Albuterol Sulf/Ipratropium 3 ML VIAL NEB SCH (15:50)
[2024-03-29] MEDS ORDERED: LISINOPRIL40 MG PO (15:56)
[2024-03-29 16:25] VITALS: BP 118/73
[2024-03-29] MEDS ORDERED: AZITHROMYCIN 250 ML IV SCH (17:00)
[2024-03-29] MEDS ORDERED: Ceftriaxone Sodium 1 GM in SYRINGE INFUSION 10 ML IV SCH (18:00)
[2024-03-29 18:13] LABS: BILIRUBIN Negative (Negative); BLOOD Negative (Negative); CLARITY Clear (Clear); COLOR Yellow (Yellow); GLUCOSE Negative (Negative); KETONE Negative (Negative); LEUKO ESTERASE Negative (Negative); NITRITE Negative (Negative); SPECIFIC GRAVITY <= 1.005 (1.001-1.030); UROBILINOGEN 0.2 E.U./dl (0.0-1.0)
[2024-03-29 18:23] LABS: WBC 0-2 wbc/hpf (0-5)
[2024-03-29 18:24] LABS: RBC 0-2 rbc/hpf (0-2)
[2024-03-29 19:55] VITALS: BP 124/84
[2024-03-29 20:10] VITALS: BP 140/89
[2024-03-29] MEDS ORDERED: Acetaminophen/Hydrocodone 5 MG/325 MG TABLET PO PRN (21:15)
[2024-03-29] MEDS ORDERED: Metoprolol Tartrate 5 MG/5 ML VIAL IV ONE (21:55)
[2024-03-29] MEDS ORDERED: METOPROLOL SUCCINATE XR 50 MG TAB PO SCH (22:00)
[2024-03-29] MEDS ORDERED: hydrALAZINE hydrochloride 25 MG TAB PO SCH (22:00)
[2024-03-29] MEDS ORDERED: APIXABAN 5 MG TAB PO SCH (22:00)
[2024-03-29] MEDS ORDERED: SUCRALFATE 1 GM TAB PO SCH (22:00)
[2024-03-29] MEDS ORDERED: Ropinirole Hydrochloride 1 MG TAB PO SCH (22:00)
[2024-03-30] VITALS: BP 141/97
[2024-03-30] MEDS ORDERED: methylPREDNISolone sod succ 40 MG VIAL IV SCH
[2024-03-30 05:57] LABS: POTASSIUM 4.6 mmol/L (3.4-5.1); TOTAL PROTEIN 5.9 gm/dL (6.0-8.0)
[2024-03-30] MEDS ORDERED: Pantoprazole Sodium 40 MG TAB PO SCH (06:00)
[2024-03-30 06:25] LABS: BASO % 0.2 % (0.0-1.0); HEMATOCRIT 38.8 % (42.0-52.0); LYMPH # 0.4 10*3/uL (1.3-4.4); LYMPH % 6.8 % (27.0-41.0); MEAN CELL VOLUME 95.3 fl (80.0-94.0); MEAN CORPUSCULAR HGB 30.5 pg (27.0-31.0); MEAN PLATELET VOLUME 10.2 fl (9.6-12.3); MONO % 0.6 % (3.0-9.0); NEUT # 5.6 10*3/uL (2.3-7.9); NEUT % 89.8 % (47.0-73.0); NUCLEATED RED BLOOD CELL 0.1 10*3/uL (0.0-0.0); PLATELET COUNT AUTOMATED 434 10*3/uL (130-400); RED BLOOD COUNT 4.07 10*6/uL (4.50-5.90); RED CELL DISTRI WIDTH 16.7 % (0-14.5); WHITE BLOOD COUNT 6.2 10*3/uL (4.8-10.8)
[2024-03-30 08:00] VITALS: BP 146/71
[2024-03-30] MEDS ORDERED: ASPIRIN, CHEWABLE 81 MG TAB PO SCH (10:00)
[2024-03-30] MEDS ORDERED: Nicotine 21 MG PATCH T SCH (10:00)
[2024-03-30] MEDS ORDERED: ATORVASTATIN CALCIUM 10 MG TAB PO SCH (10:00)
[2024-03-30] MEDS ORDERED: Duloxetine Hydrochloride 60 MG CAP PO SCH (10:00)
[2024-03-30] MEDS ORDERED: EMPAGLIFLOZIN 10 MG TABLET PO SCH (10:00)
[2024-03-30] MEDS ORDERED: ALLOPURINOL 300 MG TAB PO SCH (10:00)
[2024-03-30] MEDS ORDERED: FUROSEMIDE 40 MG/4 ML VIAL IV SCH ×2 (10:00)
[2024-04-05] MEDS ORDERED: ISORDIL10 M1 PO (17:10)
[2024-04-05] MEDS ORDERED: ASPIRIN CHILDRE81 MG PO (23:59)
[2024-04-06] MEDS ORDERED: CYMBALTA60 MG PO
[2024-04-06] MEDS ORDERED: ELIQUIS5 M1 PO
[2024-04-06] MEDS ORDERED: PROTONIX40 MG PO (00:01)
[2024-04-06] MEDS ORDERED: CARAFATE1 G1 PO (00:01)
== END 2024-03-30 13:23 | disposition left against medical advice (07) | DRG 133 ==
LOC: ED 12:38 → EDHOLD 15:15 → 4E 15:15 → ICCU 18:04 → EDHOLD 18:07 → 4E 20:20
PROVIDERS: Internal Medicine; Nurse Practitioner; ADMIT Internal Medicine; ATTEND Internal Medicine
DX: J96.20 Acute and chronic respiratory failure, unspecified whether with hypoxia or hypercapnia (principal); I50.23 Acute on chronic systolic (congestive) heart failure; J44.1 Chronic obstructive pulmonary disease with (acute) exacerbation; I42.8 Other cardiomyopathies; R65.10 Systemic inflammatory response syndrome (SIRS) of non-infectious origin without acute organ dysfunction; F17.210 Nicotine dependence, cigarettes, uncomplicated; I13.0 Hypertensive heart and chronic kidney disease with heart failure and stage 1 through stage 4 chronic kidney disease, or unspecified chronic kidney disease; G25.81 Restless legs syndrome; D75.839 Thrombocytosis, unspecified; D72.829 Elevated white blood cell count, unspecified; R73.9 Hyperglycemia, unspecified; E87.8 Other disorders of electrolyte and fluid balance, not elsewhere classified; N18.32 Chronic kidney disease, stage 3b; E78.2 Mixed hyperlipidemia; E66.01 Morbid (severe) obesity due to excess calories; I34.0 Nonrheumatic mitral (valve) insufficiency; I48.91 Unspecified atrial fibrillation; F31.9 Bipolar disorder, unspecified; I25.10 Atherosclerotic heart disease of native coronary artery without angina pectoris; M51.36 Other intervertebral disc degeneration, lumbar region; J40 Bronchitis, not specified as acute or chronic; Z53.29 Procedure and treatment not carried out because of patient's decision for other reasons; Z88.8 Allergy status to other drugs, medicaments and biological substances; Z91.09 Other allergy status, other than to drugs and biological substances; Z79.899 Other long term (current) drug therapy; Z79.01 Long term (current) use of anticoagulants; Z79.2 Long term (current) use of antibiotics; Z89.011 Acquired absence of right thumb; Z82.49 Family history of ischemic heart disease and other diseases of the circulatory system; Z87.440 Personal history of urinary (tract) infections; Z68.30 Body mass index [BMI] 30.0-30.9, adult; Z83.3 Family history of diabetes mellitus; I25.2 Old myocardial infarction

== ENCOUNTER 2024-04-02 15:46 | Emergency (ER) | payer MEDICARE, MEDICAID ==
[~2024-04-02] VITALS: Ht 167.6 cm; Wt 81.4 kg
[~2024-04-02 15:46] MED LIST changes: +LISINOPRIL40 MG PO
[2024-04-02 15:52] VITALS: BP 142/70
[2024-04-02] MEDS ORDERED: Albuterol Sulf/Ipratropium 3 ML VIAL NEB ONE (16:05)
[2024-04-02] MEDS ORDERED: methylPREDNISolone sod succ 125 MG VIAL IV ONE (16:05)
[2024-04-02 16:20] LABS: HEMATOCRIT 37.9 % (42.0-52.0); MEAN CELL VOLUME 98.4 fl (80.0-94.0); MEAN CORPUSCULAR HGB 30.6 pg (27.0-31.0); MEAN CORPUSCULAR HGB CONC 31.1 g/dl (33.0-37.0); MEAN PLATELET VOLUME 9.4 fl (9.6-12.3); PLATELET COUNT AUTOMATED 366 10*3/uL (130-400); RED BLOOD COUNT 3.85 10*6/uL (4.50-5.90); RED CELL DISTRI WIDTH 16.8 % (0-14.5); WHITE BLOOD COUNT 14.7 10*3/uL (4.8-10.8)
[2024-04-02 16:22] LABS: MANUAL DIFF REFLEX YES
[2024-04-02 16:37] LABS: POTASSIUM 3.7 mmol/L (3.4-5.1); TOTAL PROTEIN 5.3 gm/dL (6.0-8.0)
[2024-04-02 16:55] LABS: ATYPICAL LYMPHS 3 % (0-0); TOTAL CELLS COUNTED 100 #CELLS
[2024-04-02 17:06] LABS: PLATELET SUFFICIENCY NORMAL (NORMAL)
[2024-04-02] MEDS ORDERED: PREDNISONE10 MG PO (17:30)
== END 2024-04-02 17:54 | disposition home or self-care (01) ==
LOC: ED 15:46
PROVIDERS: Physician Assistant Medical
DX: J18.9 Pneumonia, unspecified organism (principal); J44.9 Chronic obstructive pulmonary disease, unspecified; I50.9 Heart failure, unspecified; I48.91 Unspecified atrial fibrillation; I25.10 Atherosclerotic heart disease of native coronary artery without angina pectoris; I13.0 Hypertensive heart and chronic kidney disease with heart failure and stage 1 through stage 4 chronic kidney disease, or unspecified chronic kidney disease; N18.9 Chronic kidney disease, unspecified; K21.9 Gastro-esophageal reflux disease without esophagitis; M19.90 Unspecified osteoarthritis, unspecified site; E78.00 Pure hypercholesterolemia, unspecified; F31.9 Bipolar disorder, unspecified; F17.200 Nicotine dependence, unspecified, uncomplicated; F12.90 Cannabis use, unspecified, uncomplicated; F10.10 Alcohol abuse, uncomplicated; Z91.041 Radiographic dye allergy status; Z88.8 Allergy status to other drugs, medicaments and biological substances; Z95.5 Presence of coronary angioplasty implant and graft; Z98.890 Other specified postprocedural states

== ENCOUNTER 2024-04-13 12:06 | Emergency (ER) | payer MEDICAID ==
[~2024-04-13] VITALS: Ht 167.6 cm
[~2024-04-13 12:06] MED LIST changes: +ASPIRIN CHILDRE81 MG PO; +CARAFATE1 G1 PO; +CYMBALTA60 MG PO
[2024-04-13] MEDS ORDERED: Albuterol Sulf/Ipratropium 3 ML VIAL NEB ONE (12:15)
[2024-04-13] MEDS ORDERED: methylPREDNISolone sod succ 125 MG VIAL IV ONE (12:15)
[2024-04-13 12:42] LABS: BASO % 0.2 % (0.0-1.0); EOS # 0.5 10*3/uL (0.0-0.4); EOS % 3.7 % (1.0-4.0); HEMATOCRIT 36.9 % (42.0-52.0); LYMPH # 1.3 10*3/uL (1.3-4.4); LYMPH % 8.8 % (27.0-41.0); MEAN CELL VOLUME 100.5 fl (80.0-94.0); MEAN CORPUSCULAR HGB CONC 29.8 g/dl (33.0-37.0); MEAN PLATELET VOLUME 9.5 fl (9.6-12.3); MONO # 0.8 10*3/uL (0.1-1.0); MONO % 5.8 % (3.0-9.0); NEUT # 11.5 10*3/uL (2.3-7.9); NEUT % 79.6 % (47.0-73.0); PLATELET COUNT AUTOMATED 270 10*3/uL (130-400); RED BLOOD COUNT 3.67 10*6/uL (4.50-5.90); RED CELL DISTRI WIDTH 16.1 % (0-14.5); WHITE BLOOD COUNT 14.5 10*3/uL (4.8-10.8)
[2024-04-13 12:54] LABS: ACT PARTIAL THROMBO TIME 21.8 SECONDS (20.0-32.1)
[2024-04-13 13:06] LABS: ALKALINE PHOSPHATASE 78 U/L (46-116); BUN 22 mg/dl (9-23); CHLORIDE 105 mmol/L (98-107); POTASSIUM 3.8 mmol/L (3.4-5.1); SGPT/ALT 43 U/L (5-49); TOTAL PROTEIN 5.2 gm/dL (6.0-8.0)
[2024-04-13] MEDS ORDERED: MAGNESIUM SULFATE 50 ML IV ONE (14:35)
[2024-04-13] MEDS ORDERED: AVPAK AZITHROM250 M1 PO (14:53)
[2024-04-13] MEDS ORDERED: PREDNISONE20 M1 PO (14:53)
[2024-04-13] MEDS ORDERED: AZITHROMYCIN 250 MG TAB PO ONE (14:55)
[2024-04-13 16:32] VITALS: BP 127/69
== END 2024-04-13 15:08 | disposition home or self-care (01) ==
LOC: ED 12:06
PROVIDERS: Nurse Practitioner Family
DX: J44.1 Chronic obstructive pulmonary disease with (acute) exacerbation (principal); E83.42 Hypomagnesemia; R79.89 Other specified abnormal findings of blood chemistry; I48.91 Unspecified atrial fibrillation; I25.2 Old myocardial infarction; I50.9 Heart failure, unspecified; F31.9 Bipolar disorder, unspecified; E44.0 Moderate protein-calorie malnutrition; E78.5 Hyperlipidemia, unspecified; N18.30 Chronic kidney disease, stage 3 unspecified; F17.210 Nicotine dependence, cigarettes, uncomplicated; Z88.1 Allergy status to other antibiotic agents; Z91.041 Radiographic dye allergy status; Z79.899 Other long term (current) drug therapy; Z79.82 Long term (current) use of aspirin; Z98.890 Other specified postprocedural states; Z89.011 Acquired absence of right thumb

== ENCOUNTER 2024-08-04 15:51 | Inpatient (IN) | payer MEDICARE, OTHER, MEDICAID ==
[~2024-08-04] VITALS: Ht 170.2 cm; Wt 81.6 kg
[~2024-08-04 15:51] MED LIST changes: +ENTRESTO 24 MG1 EACH PO
[2024-08-04 16:01] VITALS: BP 189/96
[2024-08-04] MEDS ORDERED: Labetalol Hydrochloride 20 MG/4 ML SYR IV ONE (16:20)
[2024-08-04 16:21] LABS: BASO # 0.1 10*3/uL (0.0-0.1); BASO % 0.6 % (0.0-1.0); EOS # 0.3 10*3/uL (0.0-0.4); EOS % 3.4 % (1.0-4.0); HEMATOCRIT 35.4 % (42.0-52.0); LYMPH # 1.6 10*3/uL (1.3-4.4); LYMPH % 18.2 % (27.0-41.0); MEAN CELL VOLUME 88.9 fl (80.0-94.0); MEAN CORPUSCULAR HGB 26.6 pg (27.0-31.0); MEAN CORPUSCULAR HGB CONC 29.9 g/dl (33.0-37.0); MEAN PLATELET VOLUME 8.6 fl (9.6-12.3); MONO % 11.1 % (3.0-9.0); NEUT # 5.9 10*3/uL (2.3-7.9); NEUT % 66.3 % (47.0-73.0); PLATELET COUNT AUTOMATED 400 10*3/uL (130-400); RED BLOOD COUNT 3.98 10*6/uL (4.50-5.90); RED CELL DISTRI WIDTH 16.7 % (0-14.5)
[2024-08-04 16:47] LABS: POTASSIUM 4.1 mmol/L (3.4-5.1)
[2024-08-04 17:34] VITALS: BP 152/82
[2024-08-04 17:42] VITALS: BP 141/86
[2024-08-04] MEDS ORDERED: FUROSEMIDE 40 MG/4 ML VIAL IV ONE (18:15)
[2024-08-04] MEDS ORDERED: ACETAMINOPHEN 650 MG SUPP R PRN (18:40)
[2024-08-04] MEDS ORDERED: Magnesium Hydroxide 30 ML UDC PO PRN (18:40)
[2024-08-04] MEDS ORDERED: BISACODYL 10 MG SUPP R PRN (18:40)
[2024-08-04] MEDS ORDERED: TEMAZEPAM 15 MG CAP PO PRN (18:40)
[2024-08-04] MEDS ORDERED: ACETAMINOPHEN 325 MG TAB PO PRN (18:40)
[2024-08-04] MEDS ORDERED: BISACODYL 5 MG TAB PO PRN (18:40)
[2024-08-04 18:55] VITALS: BP 166/91
[2024-08-04] MEDS ORDERED: FUROSEMIDE 40 MG/4 ML VIAL IV SCH (21:00)
[2024-08-04] MEDS ORDERED: methylPREDNISolone sod succ 40 MG VIAL IV SCH (21:05)
[2024-08-04] MEDS ORDERED: Albuterol Sulf/Ipratropium 3 ML VIAL NEB SCH (21:05)
[2024-08-04] MEDS ORDERED: hydrALAZINE hydrochloride 20 MG/ML VIAL IV ONE (21:40)
[2024-08-04] MEDS ORDERED: APIXABAN 5 MG TAB PO SCH (22:00)
[2024-08-05 00:09] VITALS: BP 150/76
[2024-08-05] MEDS ORDERED: Melatonin 5 MG TABLET PO ONE (02:30)
[2024-08-05] MEDS ORDERED: Acetaminophen/Hydrocodone 5 MG/325 MG TABLET PO ONE ×2 (02:30→11:50)
[2024-08-05 06:45] LABS: HEMATOCRIT 37.7 % (42.0-52.0); LYMPH # 0.4 10*3/uL (1.3-4.4); LYMPH % 8.7 % (27.0-41.0); MEAN CELL VOLUME 86.1 fl (80.0-94.0); MEAN CORPUSCULAR HGB 26.3 pg (27.0-31.0); MEAN CORPUSCULAR HGB CONC 30.5 g/dl (33.0-37.0); MONO # 0.1 10*3/uL (0.1-1.0); MONO % 1.1 % (3.0-9.0); NEUT # 4.1 10*3/uL (2.3-7.9); NEUT % 89.8 % (47.0-73.0); PLATELET COUNT AUTOMATED 411 10*3/uL (130-400); RED BLOOD COUNT 4.38 10*6/uL (4.50-5.90); RED CELL DISTRI WIDTH 16.5 % (0-14.5); WHITE BLOOD COUNT 4.6 10*3/uL (4.8-10.8)
[2024-08-05 07:00] LABS: ALKALINE PHOSPHATASE 75 U/L (46-116); BUN 15 mg/dl (9-23); CHLORIDE 106 mmol/L (98-107); CHOLESTEROL 145 mg/dL (<200); LDL CHOLESTEROL 86 mg/dL (9-159); POTASSIUM 4.2 mmol/L (3.4-5.1); TOTAL PROTEIN 6.7 gm/dL (6.0-8.0); TRIGLYCERIDES 78 mg/dl (<150)
[2024-08-05 07:26] LABS: SGPT/ALT < 7 U/L (5-49)
[2024-08-05 08:40] VITALS: BP 145/73
[2024-08-05] MEDS ORDERED: Enoxaparin Sodium 40 MG/0.4 ML SYR SC SCH (10:00)
[2024-08-05] MEDS ORDERED: Nicotine 21 MG PATCH T SCH (10:00)
[2024-08-05 16:00] VITALS: BP 141/86
[2024-08-05] MEDS ORDERED: FUROSEMIDE 40 MG/4 ML VIAL IV SCH (18:00)
[2024-08-05 19:58] VITALS: BP 155/85
[2024-08-05] MEDS ORDERED: LISINOPRIL 10 MG TAB PO SCH (22:00)
[2024-08-06 04:08] VITALS: BP 143/84
[2024-08-06 08:00] VITALS: BP 139/68
[2024-08-06] MEDS ORDERED: EMPAGLIFLOZIN 10 MG TABLET PO SCH (10:00)
[2024-08-06 12:00] VITALS: BP 135/65
== END 2024-08-06 13:32 | disposition home or self-care (01) | DRG 291 ==
LOC: ED 15:51 → EDHOLD 18:20
PROVIDERS: Physician Assistant Medical; Student in an Organized Health Care Education/Training Program; ADMIT Internal Medicine; ATTEND Internal Medicine
DX: I13.0 Hypertensive heart and chronic kidney disease with heart failure and stage 1 through stage 4 chronic kidney disease, or unspecified chronic kidney disease (principal); I50.23 Acute on chronic systolic (congestive) heart failure; J96.01 Acute respiratory failure with hypoxia; I16.1 Hypertensive emergency; E87.1 Hypo-osmolality and hyponatremia; I48.21 Permanent atrial fibrillation; Z53.29 Procedure and treatment not carried out because of patient's decision for other reasons; E78.2 Mixed hyperlipidemia; I25.10 Atherosclerotic heart disease of native coronary artery without angina pectoris; N18.31 Chronic kidney disease, stage 3a; F31.9 Bipolar disorder, unspecified; K21.9 Gastro-esophageal reflux disease without esophagitis; G25.81 Restless legs syndrome; E87.8 Other disorders of electrolyte and fluid balance, not elsewhere classified; F17.210 Nicotine dependence, cigarettes, uncomplicated; R73.9 Hyperglycemia, unspecified; I48.0 Paroxysmal atrial fibrillation; D64.9 Anemia, unspecified; J44.9 Chronic obstructive pulmonary disease, unspecified; Z79.899 Other long term (current) drug therapy; Z79.01 Long term (current) use of anticoagulants; Z79.2 Long term (current) use of antibiotics; Z88.8 Allergy status to other drugs, medicaments and biological substances; Z91.09 Other allergy status, other than to drugs and biological substances; Z82.49 Family history of ischemic heart disease and other diseases of the circulatory system; Z83.3 Family history of diabetes mellitus; Z71.6 Tobacco abuse counseling; Z98.890 Other specified postprocedural states

== ENCOUNTER 2024-08-30 01:55 | Inpatient (IN) | payer OTHER ==
[~2024-08-30] VITALS: Ht 172.7 cm; Wt 95.3 kg
[2024-08-30 01:55] VITALS: BP 196/110
[~2024-08-30 01:55] MED LIST changes: +KLOR-CON M2020 ME1 PO; +LIPITOR80 MG PO; +METOPROLOL SUC100 M1 PO
[2024-08-30] MEDS ORDERED: Metoprolol Tartrate 5 MG/5 ML VIAL IV ONE (02:00)
[2024-08-30] MEDS ORDERED: Lidocaine Hydrochloride 10 ML SYR UR ONE (02:05)
[2024-08-30] MEDS ORDERED: fentaNYL CITRATE 100 MCG/2 ML VIAL IV ONE (02:25)
[2024-08-30 02:29] LABS: MEAN CORPUSCULAR HGB 25.2 pg (27.0-31.0); MEAN CORPUSCULAR HGB CONC 29.6 g/dl (33.0-37.0); MEAN PLATELET VOLUME 10.3 fl (9.6-12.3); NUCLEATED RED BLOOD CELL 0.1 % (0.0-0.0); PLATELET COUNT AUTOMATED 467 10*3/uL (130-400); RED BLOOD COUNT 6.12 10*6/uL (4.50-5.90); RED CELL DISTRI WIDTH 17.2 % (0-14.5); WHITE BLOOD COUNT 28.8 10*3/uL (4.8-10.8)
[2024-08-30] MEDS ORDERED: Labetalol Hydrochloride 20 MG/4 ML SYR IV ONE (02:35)
[2024-08-30 02:43] LABS: MANUAL DIFF REFLEX YES
[2024-08-30 02:52] LABS: TOTAL CELLS COUNTED 100 #CELLS
[2024-08-30 02:53] LABS: ACT PARTIAL THROMBO TIME 26.5 SECONDS (20.0-32.1); PLATELET SUFFICIENCY HIGH (NORMAL)
[2024-08-30 02:57] LABS: TOTAL PROTEIN 6.5 gm/dL (6.0-8.0)
[2024-08-30 03:06] LABS: POTASSIUM 5.3 mmol/L (3.4-5.1)
[2024-08-30] MEDS ORDERED: Piperacillin Sodium/Tazobact 50 ML IV ONE (03:20)
[2024-08-30] MEDS ORDERED: Vancomycin Hydrochloride 250 ML IV ONE ×2 (03:20→05:15)
[2024-08-30 03:25] VITALS: BP 144/108
[2024-08-30] MEDS ORDERED: SODIUM CHLORIDE 0.9% 500 ML IV ONE ×2 (03:25→06:55)
[2024-08-30 03:29] LABS: BILIRUBIN 1+ (Negative); BLOOD 3+ (Negative); CLARITY Cloudy (Clear); COLOR Red (Yellow); GLUCOSE Negative (Negative); KETONE Negative (Negative); LEUKO ESTERASE 2+ (Negative); NITRITE Negative (Negative); UROBILINOGEN 0.2 E.U./dl (0.0-1.0)
[2024-08-30 03:40] LABS: RBC TNTC rbc/hpf (0-2); WBC 21-30 wbc/hpf (0-5)
[2024-08-30 03:45] VITALS: BP 68/40
[2024-08-30] MEDS ORDERED: Ceftriaxone Sodium 1 GM/10 ML SYR IV ONE ×2 (03:45→04:10)
[2024-08-30] MEDS ORDERED: NOREPINEPHRINE BITARTRATE/D5W 250 ML IV ONE (03:45)
[2024-08-30] MEDS ORDERED: Naloxone Hydrochloride 2 MG/2 ML SYR ONE (03:50)
[2024-08-30] MEDS ORDERED: Naloxone Hydrochloride 2 MG/2 ML SYR IV ONE (04:00)
[2024-08-30] MEDS ORDERED: AZITHROMYCIN 250 ML IV ONE (04:10)
[2024-08-30 04:20] VITALS: BP 146/110
[2024-08-30 04:44] VITALS: BP 122/83
[2024-08-30] MEDS ORDERED: NOREPINEPHRINE BITARTRATE/D5W 250 ML IV SCH (04:45)
[2024-08-30] MEDS ORDERED: SODIUM CHLORIDE 0.9% 1,000 ML IV SCH (05:10)
[2024-08-30 05:28] VITALS: BP 104/53
[2024-08-30] MEDS ORDERED: BISACODYL 5 MG TAB PO PRN (05:50)
[2024-08-30] MEDS ORDERED: Magnesium Hydroxide 30 ML UDC PO PRN (05:50)
[2024-08-30] MEDS ORDERED: Acetaminophen/Hydrocodone 5 MG/325 MG TABLET PO PRN (05:50)
[2024-08-30] MEDS ORDERED: BISACODYL 10 MG SUPP R PRN (05:50)
[2024-08-30] MEDS ORDERED: Ondansetron Hydrochloride 4 MG/2 ML VIAL IV PRN (05:50)
[2024-08-30] MEDS ORDERED: MORPHINE Sulfate 2 MG/ML SYR IV PRN (05:50)
[2024-08-30] MEDS ORDERED: ACETAMINOPHEN 650 MG SUPP R PRN (05:50)
[2024-08-30] MEDS ORDERED: ACETAMINOPHEN 325 MG TAB PO PRN (05:50)
[2024-08-30] MEDS ORDERED: EPINEPHrine Hydrochloride 1 MG/ML AMP ONE ×2 (06:54→06:55)
[2024-08-30 07:33] LABS: ABG O2 SATURATION 41.4 % (94.0-98.0)
[2024-08-30 07:38] LABS: ARTERIAL BLOOD GAS PH 7.066 (7.350-7.450); ARTERIAL BLOOD GAS PO2 38.2 mmHg (83.0-108.0)
[2024-08-30 07:39] LABS: ABG BASE EXCESS -15.7 mmol/L (-2.0-3.0)
[2024-08-30] MEDS ORDERED: ATROPINE SULFATE 1 MG/10 ML SYR IV ONE (21:27)
[2024-08-30] MEDS ORDERED: EPINEPHrine Hydrochloride 1 MG/10 ML SYR IV ONE (21:27)
[2024-08-30] MEDS ORDERED: Amiodarone Hydrochloride 150 MG/3 ML VIAL IV ONE (21:27)
[2024-08-30] MEDS ORDERED: SODIUM BICARBONATE 50 MEQ/50 ML SYR IV ONE (21:27)
== END 2024-08-30 15:55 | DRG 871 ==
LOC: ED 01:55 → EDHOLD 05:25 → ICCU 05:34 → EDHOLD 07:28
PROVIDERS: Emergency Medicine; Student in an Organized Health Care Education/Training Program; ADMIT Internal Medicine; ATTEND Internal Medicine
PROC: 05HY33Z Insertion of Infusion Device into Upper Vein, Percutaneous Approach (ICD-10-PCS; principal; 2024-08-30)
PROC: B54NZZA Ultrasonography of Left Upper Extremity Veins, Guidance (ICD-10-PCS; 2024-08-30)
DX: A41.9 Sepsis, unspecified organism (principal); G93.41 Metabolic encephalopathy; I21.4 Non-ST elevation (NSTEMI) myocardial infarction; N17.0 Acute kidney failure with tubular necrosis; J18.9 Pneumonia, unspecified organism; J96.01 Acute respiratory failure with hypoxia; J44.0 Chronic obstructive pulmonary disease with (acute) lower respiratory infection; I13.0 Hypertensive heart and chronic kidney disease with heart failure and stage 1 through stage 4 chronic kidney disease, or unspecified chronic kidney disease; I50.22 Chronic systolic (congestive) heart failure; I48.21 Permanent atrial fibrillation; N39.0 Urinary tract infection, site not specified; R65.20 Severe sepsis without septic shock; F31.9 Bipolar disorder, unspecified; I25.10 Atherosclerotic heart disease of native coronary artery without angina pectoris; M51.369 Other intervertebral disc degeneration, lumbar region without mention of lumbar back pain or lower extremity pain; K21.9 Gastro-esophageal reflux disease without esophagitis; M10.9 Gout, unspecified; G25.81 Restless legs syndrome; F17.210 Nicotine dependence, cigarettes, uncomplicated; I46.9 Cardiac arrest, cause unspecified; E87.5 Hyperkalemia; R73.9 Hyperglycemia, unspecified; N18.32 Chronic kidney disease, stage 3b; F12.90 Cannabis use, unspecified, uncomplicated; R31.9 Hematuria, unspecified; E78.2 Mixed hyperlipidemia; Z91.041 Radiographic dye allergy status; Z89.011 Acquired absence of right thumb; Z63.4 Disappearance and death of family member; Z82.49 Family history of ischemic heart disease and other diseases of the circulatory system; Z86.73 Personal history of transient ischemic attack (TIA), and cerebral infarction without residual deficits; Z88.1 Allergy status to other antibiotic agents; Z79.51 Long term (current) use of inhaled steroids; Z79.899 Other long term (current) drug therapy; Z79.82 Long term (current) use of aspirin